=== PATIENT | male | born 1955 | race Caucasian/White ===

== ENCOUNTER 2018-06-10 20:00 | Emergency (ER) | payer MEDICARE ==
[~2018-06-10] VITALS: Ht 162.6 cm; Wt 48.1 kg
--- OUTSIDE RECORDS SUMMARY | 2018-06-10 20:03 | XMS REPORT ---
Author Author [facility] Address Unknown Phone Unavailable Care Team Providers Care Cleaner And Preparer Name Role Phone Unavailable Unavailable Problems This patient has no known problems. Allergies, Adverse Reactions, Alerts This patient has no known allergies or adverse reactions. Medications This patient has no known medications. Results Test Description Test Time Test Comments Text Results Atomic Results Result Comments CT ABDOMEN AND PELVIS W/WO 2018-01-22 10:37:34 CLINICAL INDICATION: C18.7 Malignant neoplasm of sigmoid colonMODALITY: [employer] CT (Iterative dose reduction techniques are utilized.)TECHNIQUE: Helical imaging of the abdomen and pelvis is performed. Oral contrast is administered. 81 mls optiray are administered IV. Imaging performed prior to and after administration of contrast.Computed Tomography Dose Index: 43 mGy. IMPRESSION:1. Circumferential bowel wall thickening in the distal colon, approximately 4 cm in length, consistent with primary malignancy. No evidence of bowel obstruction. Nodular soft tissue thickening within the sigmoid mesocolon likely represents metastasis.2. Hepatomegaly with multiple mass lesions consistent with extensive metastatic disease.3. Trace right pleural effusion. Trace ascites.FINDINGS:COMPARISON: Ultrasound 01/13/2018The lung bases are clear. A trace right pleural effusion is present.The liver is enlarged and demonstrates multiple, low attenuation, enhancing lesions in both lobes consistent with metastatic disease. The largest measures approximately 11.8 x 9.8 cm in the right liver on series 4, image 19. Hepatic veins, portal venous system and biliary tree are normal. The gallbladder is normal in appearance.Stomach and duodenum are unremarkable. The spleen is normal in size and contour. No pancreatic mass, pancreatic duct dilatation or peripancreatic edema is visible.Adrenal glands and kidneys are normal. There are no renal calculi, hydronephrosis or masses noted.Neither retrocrural nor retroperitoneal adenopathy is present. Vascular structures are within normal limits.Circumferential bowel wall thickening in the distal sigmoid colon on image 71 is consistent with primary malignancy. This measures approximately 4 cm in length. There is no evidence of bowel obstruction. A 2.6 x 1.3 cm nodular soft tissue thickening within the sigmoid mesocolon on series 4, image 66 likely represents metastasis. A trace amount of ascites is present in the pelvis.Normal appendix. Abdominal wall is intact.No lytic or blastic osseous lesions are observed.The urinary bladder is unremarkable.No inguinal lymphadenopathy.PQRS 436: [id number] (For official use only.)
--- OUTSIDE RECORDS SUMMARY | 2018-06-10 20:03 | XMS REPORT | Summary of Care ---
Author Author LORENA SAHA M.D. Organization Unknown Address [facility] Phone Unavailable Care Team Providers Care Customer Solutions Representative Name Role Phone LORENA SAHA M.D. Unavailable Unavailable MAIKEL SANCHEZ MD Unavailable Unavailable Functional Status Name Dates Details Functional status health issues are not documented Status: Name Dates Details Cognitive status health issues are not documented Status: Problems Name Dates Details History of intestinal infection (V12.79, Z87.19) Status: Active Medications Name Dates Details Medications not documented Allergies and Adverse Reactions Name Dates Details Allergy history not documented Status: Procedures Procedure Dates Details [QLH] CULTURE, STOOL (CAMPYLOBACTER, SALMONELLA/SHIGELLA) Date: 02-Nov-2017 [QLH] CBC (INCLUDES DIFF/PLT) Date: 02-Nov-2017 [H] Iron, TIBC \T\ Ferritin Date: 02-Nov-2017 [QLH] OVA AND PARASITES, STOOL CONC/PERM SMEAR, 3 SPEC Date: 02-Nov-2017 [QLH] OVA AND PARASITES, STOOL CONC/PERM SMEAR, 3 SPEC Date: 02-Nov-2017 [QLH] OVA AND PARASITES, STOOL CONC/PERM SMEAR, 3 SPEC Date: 02-Nov-2017 Immunization Name Dates Details Immunizations not documented Social History Name Dates Details Unknown if ever smoked Vital Signs Date Test Result Details [id number] BP Systolic 163 mm[Hg] Status: BP Diastolic 94 mm[Hg] Status: Height 65 in Status: Weight 130 lb Status: Body Mass Index Calculated 21.63 kg/m2 Status: Body Surface Area Calculated 1.65 m2 Status: Heart Rate 80 /min Status: Respiration Rate 18 /min Status: O2 SAT 100 % Status: Comments: Source: RA Results Date Description Value Details Results not documented Plan of Care Name Dates Details Planned Observations [QLH] CULTURE, STOOL (CAMPYLOBACTER, SALMONELLA/SHIGELLA) On: 08-Nov-2017 Intent Comments: To be Done: Recurring Schedule: 11/15/2017, 11/22/2017 ... [QLH] CBC (INCLUDES DIFF/PLT) On: 09-Nov-2017 Intent [H] Iron, TIBC \T\ Ferritin On: 09-Nov-2017 Intent [QLH] OVA AND PARASITES, STOOL CONC/PERM SMEAR, 3 SPEC On: 02-Nov-2017 Intent Comments: To be Done: Recurring Schedule: 11/09/2017, 11/16/2017 ... [QLH] OVA AND PARASITES, STOOL CONC/PERM SMEAR, 3 SPEC On: 09-Nov-2017 Intent Planned Goals not documented Interventions Provided Labs/Procedures/Imaging* [QLH] OVA AND PARASITES, STOOL CONC/PERM SMEAR, 3 SPEC; To Be Done: 02 Nov 2017 Discussion/Summary* Mr. Azevedo, is a 62 yo male patient, as PMHx HTN, hypothyroidism, low testosterone. History of abdominal cramps with change in bowel habits started around Apr-May 2017, colonoscopy was postponed due to concern of diverticulitis for which he received 7 days of Ciprofloxacin. In June 2017 he noticed like a parasites in stools look like flukes and has photos only one of which was slightly provocative. stools O&C showed few Endolimax Madiha cysts s/p Metronidazole treatment without clinical improvement. he has photos showed blood on paper and his last lab studies done in 10/04/17 showed Anemia Hbg 11 MCV 91 iron 18 WBC 57833 E 4% 500 N 74% L 12% CRP 24.2 LDH 341 ALP 174 TSH normal. Patient has lost weight but he said intentional ( 20 Lbs over the last two months). No recent travel, last one was to [facility] 4 years ago and one y ago to [place]. Cats at home. Currently, no fever, chills , malaise or night sweats. * Plan: * Will repeat CBCD, ferritin, Stools for parasites X 6 times today * If stools exams exclude parasites infections will refer him back to GI for colonoscopy to rule out underlying inflammatory lesions and given his age 62 yo regardless of anemia we discuss the importance of colonoscopy as screening. * Return in one month * . Instructions Name Dates Details Instructions not documented Encounters Appointment; LORENA SAHA M.D. Encounter Diagnosis: Problem not documented On: 02-Nov-2017 10:00
--- OUTSIDE RECORDS SUMMARY | 2018-06-10 20:03 | XMS REPORT | Clinical Summary ---
Author Author [facility] Address Unknown Phone Unavailable Care Team Providers Care Shot Core Drill Operator Name Role Phone Oscar Rush MD PCP Allergies No Known Allergies Medications End Date Status Medication Sig Dispensed Refills Start Date Active amlodipine-benazepril Take 1 0 (LOTREL) 10-20 mg per capsule by capsule mouth daily. Active thyroid, pork, (ARMOUR Take 60 mg by 0 THYROID) 60 mg tablet mouth daily. 06/24/2018 Active lidocaine (XYLOCAINE) 5 % Apply 35.44 g 2 ointment topically 2 8 (two) times a day for 30 days. Active Problems Not on file Encounters Care Team Description Date Type Specialty Daysi Lou MD COLONOSCOPY W/ STENT W/ FLUORO 05/25/2018 Surgery Gastroenterology Maxim Ibrahim MD 05/25/2018 Anesthesia Gastroenterology Event Daysi Lou MD 05/25/2018 Hospital Gastroenterology Encounter Daysi Lou MD Mass of colon 05/25/2018 Hospital Radiology Encounter Florinda Leigh MA 03/11/2018 Telephone Gastroenterology Florinda Leigh MA 02/23/2018 Telephone Gastroenterology Daniel Houston MD 02/18/2018 Anesthesia Gastroenterology Event Daysi Lou MD COLONOSCOPY W/ STENT W/ FLUORO 02/18/2018 Surgery Gastroenterology Daysi Lou MD Obstruction of colon 02/18/2018 Hospital Gastroenterology Encounter Nguyen Ordonez MD 02/16/2018 Lab Lab Florinda Leigh MA 01/27/2018 Telephone Gastroenterology Florinda Leigh MA 01/25/2018 Telephone Gastroenterology Brandon Ventura MD 01/24/2018 Telephone Gastroenterology Brandon Ventura MD Colon cancer metastasized to liver (Primary Dx) 01/20/2018 Office Visit Gastroenterology Florinda Leigh MA 01/18/2018 Telephone GastroenterBrandon Andres MD 01/14/2018 Lab Lab Brandon Ventura MD Malignant neoplasm of sigmoid colon (Primary Dx) 01/14/2018 Orders Only Brandon Ortega MD 01/14/2018 Documentation Gastroenterology Brandon Ventura MD 01/13/2018 Telephone Gastroenterology Florinda Leigh MA 01/13/2018 Telephone Gastroenterology Brandon Ventura MD Blood in stool (Primary Dx); Weight loss; Elevated alkaline phosphatase level 01/04/2018 Office Visit Gastroenterology Brandon Ventura MD 01/04/2018 Orders Only Gastroenterology after 06/09/2017 Social History Date Tobacco Use Types Packs/Day Years Used Never Smoker Smokeless Tobacco: Never Used Alcohol Use Drinks/Week oz/Week Comments Yes none currently Sex Assigned at Date Recorded Not on file Industry Job Start Date Occupation Not on file Not on file Not on file Travel End Travel History Travel Start No recent travel history available. Last Filed Vital Signs Time Taken Vital Sign Reading 05/25/2018 10:35 AM VP SOFTWARE ENGINEERING Blood Pressure 162/79 05/25/2018 10:35 AM VP SOFTWARE ENGINEERING Pulse 76 05/25/2018 10:35 AM VP SOFTWARE ENGINEERING Temperature 37.1 C (98.8 F) 05/25/2018 10:35 AM VP SOFTWARE ENGINEERING Respiratory Rate 16 05/25/2018 10:35 AM VP SOFTWARE ENGINEERING Oxygen Saturation 100% - Inhaled Oxygen - Concentration 01/20/2018 4:08 PM CDT Weight 53.5 kg (118 lb) 05/25/2018 8:54 AM VP SOFTWARE ENGINEERING Height 162.6 cm (5' 4") 01/20/2018 4:08 PM CDT Body Mass Index 20.25 Plan of Treatment Care Team Description Date Type Specialty Shay Salguero MD [address] [facility] [address] [place] [address] 06/24/2018 [facility] General Surgery Encounter Shay Salguero MD [address] [facility] [address] [place] [address] FLEX SIG, EXAM UNDER ANESTHESIA, REMOVAL OF FOREIGN BODY 06/24/2018 Surgery General Surgery Health Maintenance Due Date Last Done Comments COLON CANCER SCREENING 2003 SHINGLES VACCINES (1 of 2003 2) INFLUENZA VACCINE 01/19/2018 Implants Device Identifier Shelf Expiration Date Model / Serial / Lot Implanted Type Area Manufactur er 10/27/2019 [id number] / / [id number] Stent Clnc Wallflex Otw [id number] Surgical N/A: N/A BSC 30mm - [id number] Stents ENDOSCOPY Implanted: 02/18/2018 (Quantity not on file) Procedures Comments Procedure Name Priority Date/Time Associated Diagnosis COLONOSCOPY 05/25/2018 Mass of colon 10:00 AM VP SOFTWARE ENGINEERING FL < 1 HOUR Routine 02/18/2018 Obstruction of colon 2:55 PM CDT COLONOSCOPY 02/18/2018 Obstruction of colon 2:00 PM CDT Mass of colon SURGICAL PATHOLOGY Routine 01/14/2018 REQUEST 11:27 AM CDT SURGICAL PATHOLOGY Routine 01/14/2018 REQUEST 11:27 AM CDT SURGICAL PATHOLOGY Routine 01/14/2018 REQUEST 11:27 AM CDT SURGICAL PATHOLOGY Routine 01/14/2018 REQUEST 11:27 AM CDT SURGICAL PATHOLOGY Routine 01/14/2018 REQUEST 11:27 AM CDT CBC WITH PLATELET AND Routine 01/04/2018 DIFFERENTIAL 12:00 AM CDT HEPATIC FUNCTION PANEL Routine 01/04/2018 12:00 AM CDT after 06/09/2017 Results * FL < 1 Hour (02/18/2018 2:55 PM CDT) Narrative Performed At EXAMINATION:FL 1 HOUR HM RADIANT INDICATION:Pain IMPRESSION: Intraoperative fluoroscopy provided. No radiologist present for the procedure. Please see procedure note for detail. Fluoroscopic images: 3 Fluoroscopy dose: 117 mGy Procedure Note Hm Interface, Radiology Results Incoming - 02/18/2018 3:22 PM CDT EXAMINATION: FL 1 HOUR INDICATION: Pain IMPRESSION: Intraoperative fluoroscopy provided. No radiologist present for the procedure. Please see procedure note for detail. Fluoroscopic images: 3 Fluoroscopy dose: 117 mGy Performing Organization Address City/[facility]/Zipcode Phone Number [facility] [address] [place] [address] * Surgical pathology request (01/14/2018 11:27 AM CDT) Only the most recent of 5 results within the time period is included. [facility] DEPARTMENT OF PATHOLOGY AND GENOMIC MEDICINE Surgical pathology report See link below for PDF Lab [facility] DEPARTMENT OF Report PATHOLOGY AND GENOMIC MEDICINE Result status This is Supplemental Report [facility] DEPARTMENT OF for [id number] PATHOLOGY AND GENOMIC MEDICINE Performing Organization Address City/[facility]/Zipcode Phone Number [facility] DEPARTMENT OF [address] [place] [address] PATHOLOGY AND GENOMIC MEDICINE * CBC with platelet and differential (01/04/2018 12:00 AM CDT) WBC 15.1 (H) 3.8 - 10.8 Thousand/uL [facility] RBC 3.90 (L) 4.20 - 5.80 Million/uL [facility] HGB 9.6 (L) 13.2 - 17.1 g/dL [facility] HCT 31.0 (L) 38.5 - 50.0 % [facility] MCV 79.5 (L) 80.0 - 100.0 fL [facility] MCH 24.6 (L) 27.0 - 33.0 pg [facility] MCHC 31.0 (L) 32.0 - 36.0 g/dL [facility] RDW 14.4 11.0 - 15.0 % [facility] [employer] [place] Platelet count 610 (H) 140 - 400 Thousand/uL [facility] MPV 11.5 7.5 - 12.5 fL [facility] [employer] [place] Neutrophils, absolute 10,993 (H) 1,500 - 7,800 cells/uL [facility] [employer] [facility] Lymphocytes, absolute 1,797 850 - 3,900 cells/uL [facility] [employer] [facility] Monocytes, absolute 1,555 (H) 200 - 950 cells/uL [facility] [employer] [facility] Eosinophils, absolute 634 (H) 15 - 500 cells/uL [facility] Basophils, absolute 121 0 - 200 cells/uL [facility] [place] Neutrophils 72.8 % [employer] [facility] Lymphocytes 11.9 % [employer] [facility] Monocytes 10.3 % [employer] [facility] Eosinophils 4.2 % [facility] Basophils + RC 0.8 % [employer] [facility] Comment Comment: [facility] WE RECEIVED YOUR HANDWRITTEN [place] TEST ORDER AND PERFORMED A CBC (INCLUDES HEMOGRAM, PLATELET AND DIFFERENTIAL). IF THIS IS NOT WHAT YOU INTENDED TO ORDER, PLEASE CONTACT YOUR LOCAL NET LEAD ARCHITECT IMMEDIATELY SO THAT WE CAN ADJUST OUR BILLING APPROPRIATELY. YOU MAY ALSO INQUIRE ABOUT ALTERNATIVE OR ADDITIONAL TESTING. Narrative Performed At FASTING: UNKNOWN [facility] Resulting Agency Comment Performing Organization Information: Site ID: [facility] Name: [facility] Address: [address] [place] [id number] Director: Ivone Sow Performing Organization Address City/[facility] Phone Number [facility] [address] [place] [address] * Hepatic function panel (01/04/2018 12:00 AM CDT) Protein 6.4 6.1 - 8.1 g/dL [facility] [employer] [facility] Albumin, S 3.9 3.6 - 5.1 g/dL [facility] Globulin, total 2.5 1.9 - 3.7 g/dL (calc) [facility] Albumin/globulin ratio 1.6 1.0 - 2.5 (calc) [employer] [facility] Total bilirubin 0.3 0.2 - 1.2 mg/dL [facility] Bilirubin direct 0.1 < OR=0.2 mg/dL [facility] Bilirubin, indirect 0.2 0.2 - 1.2 mg/dL (calc) [employer] [facility] Alkaline phosphatase 280 (H) 40 - 115 U/L [facility] AST 33 10 - 35 U/L [employer] [facility] ALT 31 9 - 46 U/L [facility] Comment Comment: [employer] We received your handwritten [place] test order and performed the AMA defined Hepatic Function Panel. If this is not what you intended to order, please contact your local client resource specialist immediately so that we may adjust our billing appropriately. You may also inquire about alternative or additional testing. Narrative Performed At FASTING: UNKNOWN [facility] Resulting Agency Comment Performing Organization Information: Site ID: [facility] Name: [facility] Address: [address] [place] [id number] Director: Ivone Sow Performing Organization Address [facility]/Zipcode Phone Number [facility]IZ[facility] [facility] [address] [place] [address] after 06/09/2017 Insurance Payer Benefit Subscriber ID Type Phone Address Plan / Group COMMERCIAL MISC MISC xxxxxxxx Commercial [employer] MEDICARE MEDICARE xxxxxxxxxxx Medicare [place], [place] PART A AND B Advance Directives Patient has advance care planning documents on file. For more information, lana singleton contact: Enoc Calderón [address] [place] [address]
[2018-06-10] MEDS ORDERED: SODIUM CHLORIDE 0.9% 1000ML 1,000 ML IV SCH (21:45)
[2018-06-11 00:54] VITALS: BP 164/82
== END 2018-06-10 22:36 | disposition home or self-care (01) ==
LOC: FSED 20:00
DX: R10.30 Lower abdominal pain, unspecified (principal); D64.9 Anemia, unspecified; C19 Malignant neoplasm of rectosigmoid junction; C78.7 Secondary malignant neoplasm of liver and intrahepatic bile duct; I10 Essential (primary) hypertension
CPT/HCPCS: 80053; 81003; 85025; 99284

== ENCOUNTER 2018-06-16 14:39 | Emergency (ER) | payer MEDICARE ==
[~2018-06-16] VITALS: Ht 162.6 cm; Wt 48.1 kg
--- OUTSIDE RECORDS SUMMARY | 2018-06-16 14:42 | XMS REPORT | Clinical Summary ---
Author Author [facility] Address Unknown Phone Unavailable Care Team Providers Care Spray Cementer Name Role Phone Oscar Rush MD PCP [...] Ventura MD 01/04/2018 Orders Only Gastroenterology after 06/15/2017 Social History Date Tobacco Use Types Packs/Day [...] Taken Vital Sign Reading 05/25/2018 10:35 AM MATH TEACHER Blood Pressure 162/79 05/25/2018 10:35 AM MATH TEACHER Pulse 76 05/25/2018 10:35 AM MATH TEACHER Temperature 37.1 C (98.8 F) 05/25/2018 10:35 AM MATH TEACHER Respiratory Rate 16 05/25/2018 10:35 AM MATH TEACHER Oxygen Saturation 100% - Inhaled Oxygen - Concentration 01/20/2018 4:08 PM CDT Weight 53.5 kg (118 lb) 05/25/2018 8:54 AM MATH TEACHER Height 162.6 cm (5' 4") 01/20/2018 4:08 PM CDT Body Mass Index 20.25 Plan of Treatment Care Team Description Date Type Specialty Shay Salguero MD [address] [facility] [address] [place] [address] 06/24/2018 [facility] General Surgery Encounter Shay Salguero MD [address] [facility] [address] [place] [address] FLEX SIG, EXAM UNDER ANESTHESIA, REMOVAL OF FOREIGN BODY 06/24/2018 Surgery General Surgery Health Maintenance Due Date Last Done Comments COLON CANCER SCREENING 2003 SHINGLES VACCINES (1 of 2003 2) INFLUENZA VACCINE 01/19/2018 PNEUMOCOCCAL 2018 POLYSACCHARIDE VACCINE AGE 65 AND OVER PNEUMOCOCCAL-13 2018 Implants Device Identifier Shelf Expiration Date Model / Serial / Lot Implanted Type Area Manufactur er 10/27/2019 [id number] / / [id number] Stent Clnc Wallflex Otw [id number] Surgical N/A: N/A BSC 30mm - [id number] Stents ENDOSCOPY Implanted: 02/18/2018 (Quantity not on file) Procedures Comments Procedure Name Priority Date/Time Associated Diagnosis COLONOSCOPY 05/25/2018 Mass of colon 10:00 AM MATH TEACHER FL < 1 HOUR Routine 02/18/2018 Obstruction [...] PANEL Routine 01/04/2018 12:00 AM CDT after 06/15/2017 Results * FL < 1 Hour (02/18/2018 [...] Fluoroscopy dose: 117 mGy Performing Organization Address City/[facility]/Zipcode Phone Number [facility] [address] [place] [address] * Surgical pathology request (01/14/2018 11:27 AM CDT) Only the most recent of 5 results within the time period is included. [facility] DEPARTMENT OF PATHOLOGY AND GENOMIC MEDICINE Surgical pathology report See link below for PDF Lab [facility] DEPARTMENT OF Report PATHOLOGY AND GENOMIC MEDICINE Result status This is Supplemental Report [facility] DEPARTMENT OF for [id number] PATHOLOGY AND GENOMIC MEDICINE Performing Organization Address City/[facility]/Zipcode Phone Number [facility] [address] [place] [address] PATHOLOGY AND GENOMIC MEDICINE * CBC with platelet and differential (01/04/2018 12:00 AM CDT) WBC 15.1 (H) 3.8 - 10.8 Thousand/uL [facility] RBC 3.90 (L) 4.20 - 5.80 Million/uL [facility] HGB 9.6 (L) 13.2 - 17.1 g/dL [facility] HCT 31.0 (L) 38.5 - 50.0 % [facility] MCV 79.5 (L) 80.0 - 100.0 fL [facility] MCH 24.6 (L) 27.0 - 33.0 pg [facility] MCHC 31.0 (L) 32.0 - 36.0 g/dL [facility] RDW 14.4 11.0 - 15.0 % [facility] Platelet count 610 (H) 140 - 400 Thousand/uL [facility] MPV 11.5 7.5 - 12.5 fL [facility] Neutrophils, absolute 10,993 (H) 1,500 - 7,800 cells/uL [facility] Lymphocytes, absolute 1,797 850 - 3,900 cells/uL [facility] Monocytes, absolute 1,555 (H) 200 - 950 cells/uL [facility] Eosinophils, absolute 634 (H) 15 - 500 cells/uL [facility] Basophils, absolute 121 0 - 200 cells/uL [facility] Neutrophils 72.8 % [facility] Lymphocytes 11.9 % [facility] Monocytes 10.3 % [facility] Eosinophils 4.2 % [facility] [place] Basophils + RC 0.8 % [facility] [place] Comment Comment: [employer] WE RECEIVED YOUR HANDWRITTEN [place] TEST ORDER AND PERFORMED A CBC (INCLUDES HEMOGRAM, PLATELET AND DIFFERENTIAL). IF THIS IS NOT WHAT YOU INTENDED TO ORDER, PLEASE CONTACT YOUR LOCAL ENTERPRISE RESOURCE PLANNING CONSULTANT IMMEDIATELY SO THAT WE CAN ADJUST OUR BILLING APPROPRIATELY. YOU MAY ALSO INQUIRE ABOUT ALTERNATIVE OR ADDITIONAL TESTING. Narrative Performed At FASTING: UNKNOWN [facility] Resulting Agency Comment Performing Organization Information: Site ID: [facility] Name: [facility] Address: [address] [place] [id number] Director: Ivone Sow Performing Organization Address City/[facility] Cent[facility]ode Phone Number [employer] [address] [address] * Hepatic function panel (01/04/2018 12:00 AM CDT) Protein 6.4 6.1 - 8.1 g/dL [employer] [place] Albumin, S 3.9 3.6 - 5.1 g/dL [employer] [place] Globulin, total 2.5 1.9 - 3.7 g/dL (calc) [email or web address] [facility] Albumin/globulin ratio 1.6 1.0 - 2.5 (calc) [employer] [place] Total bilirubin 0.3 0.2 - 1.2 mg/dL [employer] [place] Bilirubin direct 0.1 < OR=0.2 mg/dL [employer] [place] Bilirubin, indirect 0.2 0.2 - 1.2 mg/dL (calc) [employer] [place] Alkaline phosphatase 280 (H) 40 - 115 U/L [employer] [place] AST 33 10 - 35 U/L [employer] [place] ALT 31 9 - 46 U/L [employer] [place] Comment Comment: [employer] We received your handwritten [place] test order and performed the AMA defined Hepatic Function Panel. If this is not what you intended to order, please contact your local client support associate immediately so that we may adjust our billing appropriately. You may also inquire about alternative or additional testing. Narrative Performed At FASTING: [facility]KNOWN [facility] Resulting Agency Comment Performing Organization Information: Site ID: [facility] Name: [facility] Address: [address] [place] [id number] Director: Ivone Sow Performing Organization Address City/[facility]/Zipcode Phone Number [employer] [address] [phone] after 06/15/2017 Insurance Payer Benefit Subscriber ID Type Phone Address Plan / Group COMMERCIAL MISC MISC xxxxxxxx Commercial [employer] BCBS BCBS xxxxxxxxxxxx PPO CHOICE PPO/FEDERA L EMPL PPO MEDICARE MEDICARE xxxxxxxxxxx Medicare [place], [place] PART A AND B Advance Directives Patient has advance care planning documents on file. For more information, lana singleton contact: Enoc Calderón [address] [place] [address]
--- OUTSIDE RECORDS SUMMARY | 2018-06-16 14:44 | XMS REPORT | Clinical Summary ---
Author Author [employer] [facility] [employer] [facility] Address Unknown Phone Unavailable Care Team Providers Care Floor Grinder Name Role Phone Oscar Rush MD PCP [...] Mass of colon 05/25/2018 Hospital Radiology Encounter Flornida Leigh MA 03/11/2018 Telephone Gastroenterology Florinda Leigh [...] Taken Vital Sign Reading 05/25/2018 10:35 AM SECURITY LEAD Blood Pressure 162/79 05/25/2018 10:35 AM SECURITY LEAD Pulse 76 05/25/2018 10:35 AM SECURITY LEAD Temperature 37.1 C (98.8 F) 05/25/2018 10:35 AM SECURITY LEAD Respiratory Rate 16 05/25/2018 10:35 AM SECURITY LEAD Oxygen Saturation 100% - Inhaled Oxygen - Concentration 01/20/2018 4:08 PM CDT Weight 53.5 kg (118 lb) 05/25/2018 8:54 AM SECURITY LEAD Height 162.6 cm (5' 4") 01/20/2018 4:08 PM CDT Body Mass Index 20.25 Plan of Treatment Care Team Description Date Type Specialty Shay Salguero MD [address] [facility] [address] [place] [address] 06/24/2018 [facility] General Surgery Encounter Shay Salguero MD [address] [facility] [address] [place] [address] FLEX SIG, EXAM UNDER ANESTHESIA, REMOVAL OF FOREIGN BODY 06/24/2018 Surgery General Surgery Health Maintenance Due Date Last Done Comments COLON CANCER SCREENING 2003 SHINGLES VACCINES (1 of 2003 2) INFLUENZA VACCINE 01/19/2018 PNEUMOCOCCAL 2018 POLYSACCHARIDE VACCINE AGE 65 AND OVER PNEUMOCOCCAL-13 2018 Implants Device Identifier Shelf Expiration Date Model / Serial / Lot Implanted Type Area Manufactur er 10/27/2019 [id number] / / [id number] Stent Clnc Wallflex Otw [id number] Surgical N/A: N/A BSC 30mm - [id number] Stents ENDOSCOPY Implanted: 02/18/2018 (Quantity not on file) Procedures Comments Procedure Name Priority Date/Time Associated Diagnosis COLONOSCOPY 05/25/2018 Mass of colon 10:00 AM SECURITY LEAD FL < 1 HOUR Routine 02/18/2018 Obstruction [...] Fluoroscopy dose: 117 mGy Performing Organization Address City/[facility]/Zipcode Phone Number [facility] [address] [place] [address] * Surgical pathology request (01/14/2018 11:27 AM CDT) Only the most recent of 5 results within the time period is included. [facility] DEPARTMENT OF PATHOLOGY AND GENOMIC MEDICINE Surgical pathology report See link below for PDF Lab [facility] DEPARTMENT OF Report PATHOLOGY AND GENOMIC MEDICINE Result status This is Supplemental Report [facility] DEPARTMENT OF for [id number] PATHOLOGY AND GENOMIC MEDICINE Performing Organization Address City/[facility]/Zipcode Phone Number [facility] [address] [place] [address] PATHOLOGY AND GENOMIC MEDICINE * CBC with platelet and differential (01/04/2018 12:00 AM CDT) WBC 15.1 (H) 3.8 - 10.8 Thousand/uL [facility] RBC 3.90 (L) 4.20 - 5.80 Million/uL [facility] HGB 9.6 (L) 13.2 - 17.1 g/dL [facility] HCT 31.0 (L) 38.5 - 50.0 % [facility] MCV 79.5 (L) 80.0 - 100.0 fL [facility] MCH 24.6 (L) 27.0 - 33.0 pg [facility] MCHC 31.0 (L) 32.0 - 36.0 g/dL [facility] RDW 14.4 11.0 - 15.0 % [facility] Platelet count 610 (H) 140 - 400 Thousand/uL [facility] MPV 11.5 7.5 - 12.5 fL [facility] Neutrophils, absolute 10,993 (H) 1,500 - 7,800 cells/uL [facility] Lymphocytes, absolute 1,797 850 - 3,900 cells/uL [facility] Monocytes, absolute 1,555 (H) 200 - 950 cells/uL [facility] Eosinophils, absolute 634 (H) 15 - 500 cells/uL [facility] Basophils, absolute 121 0 - 200 cells/uL [facility] Neutrophils 72.8 % [facility] Lymphocytes 11.9 % [facility] Monocytes 10.3 % [facility] Eosinophils 4.2 % [facility] [place] Basophils + RC 0.8 % [facility] [place] Comment Comment: [facility] WE RECEIVED YOUR HANDWRITTEN [place] TEST ORDER AND PERFORMED A CBC (INCLUDES HEMOGRAM, PLATELET AND DIFFERENTIAL). IF THIS IS NOT WHAT YOU INTENDED TO ORDER, PLEASE CONTACT YOUR LOCAL INTENSIVE CARE MEDICINE SPECIALIST IMMEDIATELY SO THAT WE CAN ADJUST OUR BILLING APPROPRIATELY. YOU MAY ALSO INQUIRE ABOUT ALTERNATIVE OR ADDITIONAL TESTING. Narrative Performed At FASTING: UNKNOWN [facility] Resulting Agency Comment Performing Organization Information: Site ID: [facility] Name: [facility] Address: [address] [place] [id number] Director: Ivone Sow Performing Organization Address City/[facility] Clinic[facility] Phone Number [facility] [address] [address] * Hepatic function panel (01/04/2018 12:00 AM CDT) Protein 6.4 6.1 - 8.1 g/dL [facility] [place] Albumin, S 3.9 3.6 - 5.1 g/dL [facility] [place] Globulin, total 2.5 1.9 - 3.7 g/dL (calc) [facility] Albumin/globulin ratio 1.6 1.0 - 2.5 (calc) [facility] [place] Total bilirubin 0.3 0.2 - 1.2 mg/dL [facility] [place] Bilirubin direct 0.1 < OR=0.2 mg/dL [facility] [place] Bilirubin, indirect 0.2 0.2 - 1.2 mg/dL (calc) [facility] [place] Alkaline phosphatase 280 (H) 40 - 115 U/L [facility] [place] AST 33 10 - 35 U/L [facility] [place] ALT 31 9 - 46 U/L [facility] [place] Comment Comment: [facility] We received your handwritten [place] test order and performed the AMA defined Hepatic Function Panel. If this is not what you intended to order, please contact your local client experience manager immediately so that we may adjust our billing appropriately. You may also inquire about alternative or additional testing. Narrative Performed At FASTING: UNKNOWN [facility] Resulting Agency Comment Performing Organization Information: Site ID: [facility] Name: [facility] Address: [address] [place] [id number] Director: Ivone Sow Performing Organization Address City/[facility]/Zipcode Phone Number [facility] [address] [phone] after 06/15/2017 Insurance Payer Benefit Subscriber ID Type Phone Address Plan / Group COMMERCIAL MISC MISC xxxxxxxx Commercial [employer] BCBS BCBS xxxxxxxxxxxx PPO CHOICE PPO/FEDERA L EMPL PPO MEDICARE MEDICARE xxxxxxxxxxx Medicare [place], [place] PART A AND B Advance Directives Patient has advance care planning documents on file. For more information, lana singleton contact: Enoc Calderón [address] [place] [address]
--- NOTE | 2018-06-16 15:56 | Diagnostic Imaging Report ---
ADDENDUM #1 Addendum: Dose reduction techniques used: Automated exposure control, adjustment of the mAs and/or kVp according to patient size, standardized low-dose protocol, and/or iterative reconstruction technique. Signed by: Dr. Sesar Malhotra DO on 06/27/2018 10:01 AM ORIGINAL REPORT EXAMINATION: CT of the abdomen and pelvis without contrast. TECHNIQUE: Spiral CT images of the abdomen and pelvis were performed from the lung bases to the lesser trochanters. No intravenous contrast was given per renal stone protocol. Coronal and sagittal reformatted images were obtained. COMPARISON: None CLINICAL HISTORY: History of colon cancer with hepatic metastasis. Now with right-sided flank pain. DISCUSSION: Study is limited without IV contrast. ABDOMEN/PELVIS: LOWER THORAX: Unremarkable. HEPATOBILIARY: Liver is diffusely enlarged with multiple hypodense metastasis. SPLEEN: No splenomegaly. PANCREAS: No focal masses or ductal dilatation. ADRENALS: No adrenal nodules. KIDNEYS/URETERS: No calcified renal stones or hydronephrosis. Right kidney is deviated inferiorly and anteriorly by the marked hepatic enlargement. PELVIC ORGANS/BLADDER: The bladder is normal. Multiple pelvic calcifications compatible with phleboliths. PERITONEUM/RETROPERITONEUM: Pelvic ascites. LYMPH NODES: No intra-abdominal,retroperitoneal, pelvic or inguinal lymphadenopathy. VESSELS: Diffuse vascular calcification. GI TRACT: No distention or wall thickening. BONES AND SOFT TISSUES: No bony destructive lesions. No soft tissue abnormalities. IMPRESSION: 1. Massive liver enlargement with multiple hypodense metastasis. 2. No evidence of hydronephrosis, calcified renal or ureteral stones. Signed by: Dr. Sesar Malhotra DO on 06/16/2018 3:53 PM
--- NOTE | 2018-06-16 17:17 | Diagnostic Imaging Report ---
EXAMINATION: PA and lateral views of the chest. COMPARISON: CT abdomen and pelvis without contrast same date CLINICAL HISTORY: Cough DISCUSSION: Lines/tubes: None. Lungs: The lungs are well inflated and grossly clear. There is no evidence of pneumonia or pulmonary edema. Pleura: There is no pleural effusion or pneumothorax. Elevation of the right hemidiaphragm. Heart and mediastinum: Cardiomediastinal silhouette is unremarkable. Pulmonary vasculature is normal. Bones and soft tissues: No acute bony abnormalities. Degenerative changes in the thoracic spine IMPRESSION: Elevated right hemidiaphragm. No acute cardiopulmonary abnormalities. Signed by: Dr. David Norton M.D. on 06/16/2018 5:13 PM
--- NOTE | 2018-06-16 17:18 | NUR ---
PT REPORTS FEVER TO MD OF 101 TODAY AND YESTERDAY.
[2018-06-16] MEDS ORDERED: ONDANSETRON HCL 4 MG ORAL DISINTEGRATING TAB PO ONE (18:15)
--- NOTE | 2018-06-16 19:55 | Diagnostic Imaging Report ---
EXAM: CT Abdomen and Pelvis WITH contrast INDICATION: Symptoms of kidney stones. Severe right flank pain with fever. Recent surgical removal of a colonic stent in the sigmoid colon. COMPARISON: CT abdomen and pelvis without contrast 06/16/2018 at 1523 TECHNIQUE: Abdomen and pelvis were scanned utilizing a multidetector helical scanner from the lung base to the pubic symphysis after administration of IV contrast. Coronal and sagittal reformations were obtained. Routine protocol was performed. Scan was performed when during portal venous phase. IV CONTRAST: 100 mL of Isovue 370 ORAL CONTRAST: Gastrografin COMPLICATIONS: None RADIATION DOSE: Total DLP: 377.09 mGy*cm Estimated effective dose: (DLP x 0.015 x size factor) mSv CTDIvol has been reviewed. It is below the limits set by the Radiation Protocol Committee (RPC). FINDINGS: LINES and TUBES: None. LOWER THORAX: Severe trivessel coronary artery calcifications. Mild distal esophageal wall thickening with surrounding varices. Tiny right pleural effusion. HEPATOBILIARY: Liver is enlarged and diffusely infiltrated by metastases. No biliary ductal dilation. GALLBLADDER: No radio-opaque stones or sludge. No wall thickening. SPLEEN: No splenomegaly. PANCREAS: No focal masses or ductal dilatation. ADRENALS: Left adrenal gland is normal. Right adrenal gland is not visualized. KIDNEYS/URETERS: Kidneys enhance symmetrically. Right kidney is displaced inferiorly and anteriorly by the hepatic enlargement. No hydronephrosis. No cystic or solid mass lesions. No stones. GI TRACT: Diffuse rectal wall thickening. Sigmoid colon is decompressed and demonstrates mild wall thickening. More proximal sigmoid colon has significant stool without definite obstruction. No abnormal distention, wall thickening, or evidence of bowel obstruction. Appendix is not visualized. PELVIC ORGANS/BLADDER: Unremarkable. LYMPH NODES: No lymphadenopathy. VESSELS: There is moderate atherosclerotic disease in the aorta and major arterial branches. IVC is compressed by the liver. Main portal vein is patent. However, right portal vein distally is obscured and likely compressed by tumor. There is abnormal course of the left portal vein, which remains patent. PERITONEUM / RETROPERITONEUM: Free fluid in the pelvis. BONES: Unremarkable. SOFT TISSUES: Enlarging small bowel containing right inguinal hernia compared to same date CT. There is mild proximal dilatation of the small bowel loop measuring 2.2 cm. IMPRESSION: 1. Massive liver enlargement with diffuse metastatic disease. 2. Enlarging right inguinal hernia containing small bowel loop with mild upstream obstruction. This has enlarged compared to same date CT. 3. Distal sigmoid and rectal wall thickening, consistent with colonic neoplasm. No upstream obstruction. Significant stool throughout the remaining colon. 4. Free fluid in the deep pelvis. Signed by: Dr. Du Lan M.D. on 06/16/2018 7:51 PM
== END 2018-06-16 19:30 | disposition home or self-care (01) ==
LOC: FSED 14:39
DX: R10.31 Right lower quadrant pain (principal); R10.11 Right upper quadrant pain; R11.2 Nausea with vomiting, unspecified; Z85.038 Personal history of other malignant neoplasm of large intestine
CPT/HCPCS: 71046; 74176; 74177; 80053; 81003; 85025; 99284; Q0162

== ENCOUNTER 2018-07-22 09:59 | Observation (INO) | payer MEDICARE, OTHER ==
[~2018-07-22] VITALS: Ht 162.6 cm; Wt 49.4 kg
--- OUTSIDE RECORDS SUMMARY | 2018-07-22 10:01 | XMS REPORT | Clinical Summary ---
Author Author [employer] [facility] Organization [employer] [facility] Address Unknown Phone Unavailable Care Team Providers Care Truck Technician Name Role Phone Oscar Rush MD PCP Allergies No Known Allergies Medications End Date Status Medication Sig Dispensed Refills Start Date Active amlodipine-benazepril Take 1 0 (LOTREL) 10-20 mg per capsule by capsule mouth daily. Active thyroid, pork, (ARMOUR Take 60 mg by 0 THYROID) 60 mg tablet mouth daily. 06/24/2018 lidocaine (XYLOCAINE) 5 % Apply 35.44 g [...] Visit Gastroenterology Florinda Leigh MA 01/18/2018 Telephone Gastroenterology Brandon Ventura MD 01/14/2018 Lab Lab Brandon Ventura MD Malignant neoplasm of sigmoid colon (Primary Dx) 01/14/2018 Orders Only GastroenterBrandon Andres MD 01/14/2018 Documentation Gastroenterology Brandon Ventura MD 01/13/2018 Telephone Gastroenterology Florinda Leigh MA 01/13/2018 Telephone Gastroenterology Brandon Ventura MD Blood in stool (Primary Dx); Weight loss; Elevated alkaline phosphatase level 01/04/2018 Office Visit Gastroenterology Brandon Ventura MD 01/04/2018 Orders Only Gastroenterology after 07/21/2017 Social History Date Tobacco Use Types Packs/Day [...] Taken Vital Sign Reading 05/25/2018 10:35 AM AERONAUTICAL ENGINEERING TEACHER Blood Pressure 162/79 05/25/2018 10:35 AM AERONAUTICAL ENGINEERING TEACHER Pulse 76 05/25/2018 10:35 AM AERONAUTICAL ENGINEERING TEACHER Temperature 37.1 C (98.8 F) 05/25/2018 10:35 AM AERONAUTICAL ENGINEERING TEACHER Respiratory Rate 16 05/25/2018 10:35 AM AERONAUTICAL ENGINEERING TEACHER Oxygen Saturation 100% - Inhaled Oxygen - Concentration 01/20/2018 4:08 PM CDT Weight 53.5 kg (118 lb) 05/25/2018 8:54 AM AERONAUTICAL ENGINEERING TEACHER Height 162.6 cm (5' 4") 01/20/2018 4:08 PM CDT Body Mass Index 20.25 Plan of Treatment Health Maintenance Due Date Last Done Comments COLON CANCER SCREENING 2003 SHINGLES VACCINES (1 of 2003 2) INFLUENZA VACCINE 01/19/2018 PNEUMOCOCCAL 2018 POLYSACCHARIDE VACCINE AGE 65 AND OVER PNEUMOCOCCAL-13 2018 Implants Device Identifier Shelf Expiration Date Model / Serial / Lot Implanted Type Area Manufactur er 10/27/2019 [id number] / / [id number] Stent Clnc Wallflex Otw [id number] Surgical N/A: N/A [facility] 30mm - [id number] Stents ENDOSCOPY Implanted: 02/18/2018 (Quantity not on file) Procedures Comments Procedure Name Priority Date/Time Associated Diagnosis COLONOSCOPY 05/25/2018 Mass of colon 10:00 AM AERONAUTICAL ENGINEERING TEACHER [place] < 1 HOUR Routine 02/18/2018 [...] PANEL Routine 01/04/2018 12:00 AM CDT after 07/21/2017 Results * FL < 1 Hour (02/18/2018 2:55 PM CDT) Narrative Performed At EXAMINATION:[place] 1 HOUR [facility] INDICATION:Pain IMPRESSION: Intraoperative fluoroscopy provided. No radiologist present for the procedure. Please see procedure note for detail. Fluoroscopic images: 3 Fluoroscopy dose: [address] [facility], Radiology Results Incoming - 02/18/2018 3:22 PM CDT EXAMINATION: FL 1 HOUR INDICATION: Pain IMPRESSION: Intraoperative fluoroscopy provided. No radiologist present for the procedure. Please see procedure note for detail. Fluoroscopic images: 3 Fluoroscopy dose: 117 mGy Performing Organization Address City/State/Zipcode Phone Number [facility] [address] [place] [address] * Surgical pathology request (01/14/2018 11:27 AM CDT) Only the most recent of 5 results within the time period is included. [facility] DEPARTMENT OF PATHOLOGY AND GENOMIC MEDICINE Surgical pathology report See link below for PDF Lab [facility] DEPARTMENT OF Report PATHOLOGY AND GENOMIC MEDICINE Result status This is Supplemental Report [facility] DEPARTMENT OF for [id number] PATHOLOGY AND GENOMIC MEDICINE Performing Organization Address City/State/Zipcode Phone Number [facility] DEPARTMENT OF [address] [place] [address] PATHOLOGY AND GENOMIC MEDICINE * CBC with platelet and differential (01/04/2018 12:00 AM CDT) WBC 15.1 (H) 3.8 - 10.8 Thousand/uL [facility] [place] RBC 3.90 (L) 4.20 - 5.80 Million/uL [facility] [place] HGB 9.6 (L) 13.2 - 17.1 g/dL [facility] [place] HCT 31.0 (L) 38.5 - 50.0 % [facility] [place] MCV 79.5 (L) 80.0 - 100.0 fL [facility] [place] MCH 24.6 (L) 27.0 - 33.0 pg [facility] [place] MCHC 31.0 (L) 32.0 - 36.0 g/dL [facility] [place] RDW 14.4 11.0 - 15.0 % [facility] [place] Platelet count 610 (H) 140 - 400 Thousand/uL [facility] [place] MPV 11.5 7.5 - 12.5 fL [facility] [place] Neutrophils, absolute 10,993 (H) 1,500 - 7,800 cells/uL [facility] [place] Lymphocytes, absolute 1,797 850 - 3,900 cells/uL [facility] [place] Monocytes, absolute 1,555 (H) 200 - 950 cells/uL [facility] [place] Eosinophils, absolute 634 (H) 15 - 500 cells/uL [facility] [place] Basophils, absolute 121 0 - 200 cells/uL [facility] [place] Neutrophils 72.8 % [facility] [place] Lymphocytes 11.9 % [facility] [place] Monocytes 10.3 % [facility] [place] Eosinophils 4.2 % [facility] [place] Basophils + RC 0.8 % [facility] [place] Comment Comment: [facility] WE RECEIVED YOUR HANDWRITTEN [place] TEST ORDER AND PERFORMED A CBC (INCLUDES HEMOGRAM, PLATELET AND DIFFERENTIAL). IF THIS IS NOT WHAT YOU INTENDED TO ORDER, PLEASE CONTACT YOUR LOCAL CCTV TECHNICIAN IMMEDIATELY SO THAT WE CAN ADJUST OUR BILLING APPROPRIATELY. YOU MAY ALSO INQUIRE ABOUT ALTERNATIVE OR ADDITIONAL TESTING. Narrative Performed At FASTING: UNKNOWN [facility] Resulting Agency Comment Performing Organization Information: Site ID: [id number] Name: [facility] Address: [address] [place] [address] Director: Ivone Sow Performing Organization Address [facility] Phone Number [facility] [place] [address] [place] [address] * Hepatic function panel (01/04/2018 12:00 AM CDT) Protein 6.4 6.1 - 8.1 g/dL [facility] [place] Albumin, S 3.9 3.6 - 5.1 g/dL [facility] [place] Globulin, total 2.5 1.9 - 3.7 g/dL (calc) [facility] [place] Albumin/globulin ratio 1.6 1.0 - 2.5 (calc) [facility] [place] Total bilirubin 0.3 0.2 - 1.2 mg/dL [facility] [place] Bilirubin direct 0.1 < OR=0.2 mg/dL [facility] [place] Bilirubin, indirect 0.2 0.2 - 1.2 mg/dL (calc) [facility] [place] Alkaline phosphatase 280 (H) 40 - 115 U/L [facility] [place] AST 33 10 - 35 U/L [facility] [place] ALT 31 9 - 46 U/L [facility] [place] Comment Comment: [facility] We received your handwritten [place] test order and performed the AMA defined Hepatic Function Panel. If this is not what you intended to order, please contact your local retail client solutions consultant immediately so that we may adjust our billing appropriately. You may also inquire about alternative or additional testing. Narrative Performed At FASTING: UNKNOWN [facility] Resulting Agency Comment Performing Organization Information: Site ID: [id number] Name: [facility] Lab Address: [address] [place] [address] Director: Ivone Sow Performing Organization Address City/[facility] Cent[facility]ode Phone Number [facility] [place] [address] [place], [place] [phone] after 07/21/2017 Insurance Payer Benefit Subscriber ID Type Phone Address Plan / Group COMMERCIAL MISC MISC xxxxxxxx Commercial [employer] BCBS BCBS xxxxxxxxxxxx PPO CHOICE PPO/FEDERA L EMPL PPO MEDICARE MEDICARE xxxxxxxxxxx Medicare [place], [place] PART [place] ) [place] [address] Advance Directives Patient has advance care planning documents on file. For more information, lana singleton contact: Enoc Calderón [address] [place] [address]
--- OUTSIDE RECORDS SUMMARY | 2018-07-22 10:01 | XMS REPORT | Continuity of Care Document ---
Author Author [facility] Interface Address Unknown Phone Unavailable Problems Problem Status Onset Date Classification Date Reported Comments Source Medications Medication Details Route Status Patient Instructions Ordering Provider Order Date Source Allergies, Adverse Reactions, Alerts Substance Category Reaction Severity Reaction type Status Date Reported Comments Source Immunizations Immunization Date Given Site Status Last Updated Comments Source Results Order Name Results Value Reference Range Date Interpretation Comments Source Vital Signs Vital Sign Value Date Comments Source Encounters Location Location Details Encounter Type Encounter Number Reason For Visit Attending Provider ADM Date DC Date Status Source Departed Emergency Room [id number] YEIMI SHIN MD 06/10/2018 06/10/2018 [facility] Departed Emergency Room [id number] RUSS ESQUIVEL MD 06/16/2018 06/16/2018 [facility] Procedures Procedure Code Date Perfomer Comments Source
[2018-07-22] MEDS ORDERED: ONDANSETRON HCL INJ 2MG/ML 2ML 2 MG/ML VIAL IV STA (10:26)
[2018-07-22] MEDS ORDERED: MORPHINE SULFATE 5 MG/ML VIAL IV ONE (10:30)
[2018-07-22] MEDS ORDERED: SODIUM CHLORIDE 0.9% 1000ML 1,000 ML IV SCH (10:30)
--- NOTE | 2018-07-22 11:44 | Diagnostic Imaging Report ---
EXAMINATION: CT of the abdomen and pelvis with contrast. TECHNIQUE: Helical CT images of the abdomen and pelvis were performed from the lung bases to the lesser trochanters after the intravenous administration of 150 cc of Isovue 300 and the oral administration of none. Coronal and sagittal reformatted images were obtained. COMPARISON: June 16, 2018 CLINICAL HISTORY:Abdominal pain DISCUSSION: ABDOMEN/PELVIS: LOWER THORAX:Bilateral pleural effusions. HEPATOBILIARY: Hepatic enlargement with bilobed diffuse hepatic metastasis. No intra-or extrahepatic biliary ductal dilation. The gallbladder is normal. SPLEEN: No splenomegaly. PANCREAS: No focal masses or ductal dilatation. ADRENALS: No adrenal nodules. KIDNEYS/URETERS: No hydronephrosis, stones, or solid mass lesions. PELVIC ORGANS/BLADDER: The bladder is normal. PERITONEUM/RETROPERITONEUM: Abdominal ascites increased. LYMPH NODES: No intra-abdominal, retroperitoneal, pelvic or inguinal lymphadenopathy. VESSELS: Vascular calcifications GI TRACT: Thickening of the sigmoid colon, relatively stable on axial image 79. No obstruction. BONES AND SOFT TISSUE: No bony destructive lesions. No soft tissue abnormalities. IMPRESSION: Sigmoid colonic malignancy with extensive bilobed hepatic metastasis, appear stable. Mildly increased pleural effusions and ascites. Signed by: Dr. Jairon Sands M.D. on 07/22/2018 11:41 AM
[2018-07-22] MEDS ORDERED: LEVOFLOXACIN 500MG/D5W 100ML 100 ML IV SCH (12:15)
[2018-07-22] MEDS ORDERED: SODIUM CHLORIDE 0.9% 250ML 250 ML IV ONE (12:15)
[2018-07-22] MEDS ORDERED: MORPHINE SULFATE 2 MG/ML SYR 1ML IV PRN (12:15)
--- OUTSIDE RECORDS SUMMARY | 2018-07-22 12:20 | XMS REPORT | Clinical Summary ---
Author Author [facility] Organization [facility] Address Unknown Phone Unavailable Care Team Providers Care Improvement Spec Name Role Phone Oscar Rush MD PCP [...] of colon 05/25/2018 Hospital Radiology Encounter Florinda Legih MA 03/11/2018 Telephone Gastroenterology Florinda Leigh MA [...] Taken Vital Sign Reading 05/25/2018 10:35 AM PRODUCTION PLANNING SUPERVISOR Blood Pressure 162/79 05/25/2018 10:35 AM PRODUCTION PLANNING SUPERVISOR Pulse 76 05/25/2018 10:35 AM PRODUCTION PLANNING SUPERVISOR Temperature 37.1 C (98.8 F) 05/25/2018 10:35 AM PRODUCTION PLANNING SUPERVISOR Respiratory Rate 16 05/25/2018 10:35 AM PRODUCTION PLANNING SUPERVISOR Oxygen Saturation 100% - Inhaled Oxygen - Concentration 01/20/2018 4:08 PM CDT Weight 53.5 kg (118 lb) 05/25/2018 8:54 AM PRODUCTION PLANNING SUPERVISOR Height 162.6 cm (5' 4") 01/20/2018 4:08 PM CDT Body Mass Index 20.25 Plan of Treatment Health Maintenance Due Date Last Done Comments COLON CANCER SCREENING 2003 SHINGLES VACCINES (1 of 2003 2) INFLUENZA VACCINE 01/19/2018 PNEUMOCOCCAL 2018 POLYSACCHARIDE VACCINE AGE 65 AND OVER PNEUMOCOCCAL-13 2018 Implants Device Identifier Shelf Expiration Date Model / Serial / Lot Implanted Type Area Manufactur er 10/27/2019 [id number] / / [id number] Stent Clnc Wallflex Otw [id number] Surgical N/A: N/A [facility] 30mm - [id number] Stents ENDOSCOPY Implanted: 02/18/2018 (Quantity not on file) Procedures Comments Procedure Name Priority Date/Time Associated Diagnosis COLONOSCOPY 05/25/2018 Mass of colon 10:00 AM PRODUCTION PLANNING SUPERVISOR FL < 1 HOUR Routine 02/18/2018 Obstruction [...] 3 Fluoroscopy dose: 117 mGy Procedure Note [facility], Radiology Results Incoming - 02/18/2018 3:22 PM CDT EXAMINATION: FL 1 HOUR INDICATION: Pain IMPRESSION: Intraoperative fluoroscopy provided. No radiologist present for the procedure. Please see procedure note for detail. Fluoroscopic images: 3 Fluoroscopy dose: 117 mGy Performing Organization Address City/State/Zipcode Phone Number [facility] [address] [place] [address] * Surgical pathology request (01/14/2018 11:27 AM CDT) Only the most recent of 5 results within the time period is included. [facility] DEPARTMENT OF PATHOLOGY AND GENOMIC MEDICINE Surgical pathology report See link below for PDF Lab [facility] DEPARTMENT OF Report PATHOLOGY AND GENOMIC MEDICINE Result status This is Supplemental Report [facility] DEPARTMENT OF for [id number] PATHOLOGY AND GENOMIC MEDICINE Performing Organization Address City/State/Zipcode Phone Number [facility] DEPARTMENT OF [address] [place] [address] PATHOLOGY AND GENOMIC MEDICINE * CBC with platelet and differential (01/04/2018 12:00 AM CDT) WBC 15.1 (H) 3.8 - 10.8 Thousand/uL [facility] [place] RBC 3.90 (L) 4.20 - 5.80 Million/uL [facility] [place] HGB 9.6 (L) 13.2 - 17.1 g/dL [facility] [place] HCT 31.0 (L) 38.5 - 50.0 % [facility] MCV 79.5 (L) 80.0 - 100.0 fL [facility] MCH 24.6 (L) 27.0 - 33.0 pg [facility] MCHC 31.0 (L) 32.0 - 36.0 g/dL [facility] RDW 14.4 11.0 - 15.0 % [facility] Platelet count 610 (H) 140 - 400 Thousand/uL [facility] MPV 11.5 7.5 - 12.5 fL [facility] Neutrophils, absolute 10,993 (H) 1,500 - 7,800 cells/uL [facility] Lymphocytes, absolute 1,797 850 - 3,900 cells/uL [facility] Monocytes, absolute 1,555 (H) 200 - 950 cells/uL [facility] Eosinophils, absolute 634 (H) 15 - 500 cells/uL [facility] Basophils, absolute 121 0 - 200 cells/uL [facility] Neutrophils 72.8 % [facility] Lymphocytes 11.9 % [facility] Monocytes 10.3 % [facility] Eosinophils 4.2 % [facility] Basophils + RC 0.8 % [facility] Comment Comment: [facility] WE RECEIVED YOUR HANDWRITTEN [place] TEST ORDER AND PERFORMED A CBC (INCLUDES HEMOGRAM, PLATELET AND DIFFERENTIAL). IF THIS IS NOT WHAT YOU INTENDED TO ORDER, PLEASE CONTACT YOUR LOCAL FLATWORK PRESSER IMMEDIATELY SO THAT WE CAN ADJUST OUR BILLING APPROPRIATELY. YOU MAY ALSO INQUIRE ABOUT ALTERNATIVE OR ADDITIONAL TESTING. Narrative Performed At FASTING: UNKNOWN [facility] Resulting Agency Comment Performing Organization Information: Site ID: [id number] Name: [facility] Address: [address] [place] [address] Director: Ivone Sow Performing Organization Address [facility] Phone Number [facility] [address] [place] [address] * Hepatic function panel (01/04/2018 12:00 AM CDT) Protein 6.4 6.1 - 8.1 g/dL [facility] Albumin, S 3.9 3.6 - 5.1 g/dL [facility] Globulin, total 2.5 1.9 - 3.7 g/dL (calc) [facility] Albumin/globulin ratio 1.6 1.0 - 2.5 (calc) [facility] Total bilirubin 0.3 0.2 - 1.2 mg/dL [facility] Bilirubin direct 0.1 < OR=0.2 mg/dL [facility] Bilirubin, indirect 0.2 0.2 - 1.2 mg/dL (calc) [facility] Alkaline phosphatase 280 (H) 40 - 115 U/L [facility] AST 33 10 - 35 U/L [facility] ALT 31 9 - 46 U/L [facility] Comment Comment: [facility] We received your handwritten [facility] test order and performed the AMA defined Hepatic Function Panel. If this is not what you intended to order, please contact your local client relationship manager immediately so that we may adjust our billing appropriately. You may also inquire about alternative or additional testing. Narrative Performed At FASTING: UNKNOWN [facility] Resulting Agency Comment Performing Organization Information: Site ID: [id number] Name: [facility] Address: [address] [place] [address] Director: Ivone Sow Performing Organization Address City/[facility] Phone Number [facility] [address] [place], [place] [phone] after 07/21/2017 Insurance Payer Benefit Subscriber ID Type Phone Address Plan / Group COMMERCIAL MISC MISC xxxxxxxx Commercial [employer] BCBS BCBS xxxxxxxxxxxx PPO CHOICE PPO/FEDERA L EMPL PPO MEDICARE MEDICARE xxxxxxxxxxx Medicare [place], [place] PART A [place] B ) [place] [address] Advance Directives Patient has advance care planning documents on file. For more information, lana singleton contact: Enoc Calderón [address] [place] [address]
[2018-07-22] MEDS: SODIUM CHLORIDE 0.9% 1000ML 1,000 ML IV SCH (13:07)
--- NOTE | 2018-07-22 13:16 | NUR ---
Report to Shreya Chowdhury on Obs at [facility].
[2018-07-22] MEDS ORDERED: METRONIDAZOLE 500MG/NS 100ML 100 ML IV SCH (14:00)
[2018-07-22] MEDS ORDERED: ONDANSETRON ODT8 MG (14:21)
[2018-07-22] MEDS ORDERED: AMLODIPINE BESYL5 MG (14:21)
[2018-07-22] MEDS ORDERED: BENAZEPRIL HCL40 MG (14:21)
[2018-07-22] MEDS ORDERED: PENTAZOCINE-NA1 EACH (14:21)
--- NOTE | 2018-07-22 14:40 | NUR ---
Pt was unable to urniate before transfer to [facility]. Pt was being given fluids via IV and PO. No N/V. Pt states he is unable to urinate at this time.
[2018-07-22 14:45] VITALS: BP 115/74
--- NOTE | 2018-07-22 14:45 | NUR ---
Received pt from free standing ER. Pt is aox4 and able to verbalize needs. Denies any pain at this time, pt states he received morphine in ER and it helped pain level. Pt continues on IVF NS @ 100ML and well tolerated. Pt is to have 2 units PRBC today. Called lab for type and screen to be done.
[2018-07-22 15:46] VITALS: BP 115/74
[2018-07-22] MEDS ORDERED: SODIUM CHLORIDE 0.9% 250ML 250 ML ONE ×3 (18:10→23:11)
[2018-07-22 19:20] VITALS: BP 137/84
[2018-07-22 19:40] VITALS: BP 137/84
--- NOTE | 2018-07-22 20:00 | NUR ---
First unit of blood transfusion completed, no adverse reaction noted. Condition stable without respiratory distress. call light within reach, assisted patient with ADLs.
[2018-07-22] MEDS ORDERED: MORPHINE SULFATE INJ 4 MG/ML INJ 1ML IV PRN (20:30)
[2018-07-22] MEDS: ONDANSETRON HCL INJ 2MG/ML 2ML 2 MG/ML VIAL IV PRN (20:36)
--- NOTE | 2018-07-22 21:33 | NUR ---
Patient has Flagyl scheduled and he has allergy to Flagyl listed. Spoke with Dr. Macdonald regarding the patients allergy to Flagyl, MD ordered to discontinue the Flagyl.
--- NOTE | 2018-07-22 23:25 | NUR ---
Second unit of blood transfusion started, patient tolerating transfusion without adverse reaction. Primary nurse observing the patient closely for any reaction. Vital signs stable, family member also in the room with the patient.
[2018-07-23 01:00] VITALS: BP 154/91
--- NOTE | 2018-07-23 01:50 | NUR ---
Second unit of transfusion completed. patient tolerated transfusion without adverse reaction. call light within easy reach, assisted with ADLs
[2018-07-23] MEDS: SODIUM CHLORIDE 0.9% 1000ML 1,000 ML IV SCH (02:44)
--- NOTE | 2018-07-23 03:45 | NUR ---
PATIENT ASSISTED TO THE RESTROOM, HE'S NOW BACK IN BED WITHOUT DISTRESS AND HE DENIES PAIN. CALL LIGHT WITHIN EASY REACH, INSTRUCTED TO CALL FOR ASSISTANCE NEEDED.
[2018-07-23 04:30] VITALS: BP 150/87
[2018-07-23 06:34] LABS: BASOPHILS % 0.1 % (0.0-1.0); EOSINOPHILS % 0.1 % (0.0-6.0); HEMATOCRIT 27.7 % (38.2-49.6); HEMOGLOBIN 9.3 g/dL (14.0-18.0); LYMPHOCYTES # (AUTO) 0.6 (1.0-3.2); LYMPHOCYTES % 3.5 % (18.0-39.1); MEAN CORPUSCULAR HEMOGLOBIN 25.1 pg (28-32); MEAN CORPUSCULAR HGB CONC 33.6 g/dL (31-35); MEAN CORPUSCULAR VOLUME 74.9 fL (81-99); MONOCYTES # (AUTO) 1.7 (0.2-0.8); MONOCYTES % 9.6 % (4.4-11.3); NEUTROPHILS # (AUTO) 15.1 (2.1-6.9); NEUTROPHILS % 85.9 % (38.7-80.0); PLATELET COUNT 752 x10e3/uL (140-360); RED CELL DISTRIBUTION WIDTH 17.5 % (11.7-14.4)
--- NOTE | 2018-07-23 07:42 | NUR ---
patient resting in bed, AAOx3, Denies any pain this time, not in any distress, call light in reach, encouraged to call for any assistance
[2018-07-23] MEDS: ONDANSETRON HCL INJ 2MG/ML 2ML 2 MG/ML VIAL IV PRN (07:47)
[2018-07-23 07:48] VITALS: BP 161/92
[2018-07-23 08:04] LABS: EOSINOPHILS % (MANUAL) 1 % (0-7); LYMPHOCYTES % (MANUAL) 3 % (19-48); MONOCYTES % (MANUAL) 12 % (3.4-9.0); NEUTROPHILS % (MANUAL) 84 % (40-74)
[2018-07-23 08:05] LABS: ANISOCYTOSIS SLIGHT; MICROCYTOSIS SLIGHT; PLATELET ESTIMATE SLIGHTLY INCREASED; PLATELET MORPHOLOGY COMMENT NORMAL
--- NOTE | 2018-07-23 08:20 | NUR ---
Dr Macdonald here for rounds, notified BP161/92. No new orders recvd. patient stable, will recheck BP
[2018-07-23 08:49] VITALS: BP 161/92
[2018-07-23] MEDS ORDERED: LEVAQUIN500 MG PO (08:54)
--- NOTE | 2018-07-23 09:32 | NUR ---
Patient discharged home, prescription given, patient aware about possible side effects of prescribed antibiotic . IV canula (2) removed with tip intact, no ss of infiltration noted, at bed side giving ride, transported via wheel chair o front lobby, denies any pain, no distress noted this time
--- NOTE | 2018-07-24 01:22 | Discharge Summary ---
DISCHARGE DIAGNOSES 1. Colitis. 2. Abdominal pain. 3. History of stage IV colon cancer. 4. Hypertension. HISTORY OF PRESENT ILLNESS AND HOSPITAL COURSE: See hospital chart for full details. Patient is a gentleman who presented with some abdominal pain and on CT scan was shown to have known hepatic mets of the sigmoid colon with some possible thickening of the sigmoid colon with maybe evidence of colitis. So, he was placed on IV antibiotics with Levaquin. By the next morning, he stated that he was feeling better, but he was not very happy with the hospital bed here. He already had outpatient followup on Wednesday with his oncologist. He really wanted to be discharged home on p.o. antibiotics and he will continue with his home medications and follow up on Wednesday with his oncologist. So I reiterate to the patient he is welcome to stay longer if need be and he said no, he said he wanted to be discharged now and since his vital signs were stable, discharged home with p.o. Levaquin. Please see hospital chart for full details. Job#: [id number] ARISTE[facility]
== END 2018-07-23 09:52 | disposition home or self-care (01) ==
LOC: FSED 09:59 → ERHOLD 12:09 → IMCU 14:51
PROVIDERS: ADMIT Internal Medicine; ATTEND Internal Medicine
DX: K52.9 Noninfective gastroenteritis and colitis, unspecified (principal); D64.9 Anemia, unspecified; C18.7 Malignant neoplasm of sigmoid colon; C78.7 Secondary malignant neoplasm of liver and intrahepatic bile duct; E03.9 Hypothyroidism, unspecified; Z98.0 Intestinal bypass and anastomosis status; Z88.8 Allergy status to other drugs, medicaments and biological substances; I10 Essential (primary) hypertension
CPT/HCPCS: 36415; 36430; 74177; 80053; 85025 ×2; 86850; 86900; 86920; 99284; G0378 ×2; J1956; J2270 ×2; J2405 ×2; J7030 ×2; J7050; P9016

== ENCOUNTER 2018-08-26 10:01 | Observation (INO) | payer MEDICARE, OTHER ==
[~2018-08-26] VITALS: Ht 162.6 cm; Wt 57.2 kg
[~2018-08-26 10:01] MED LIST: AMLODIPINE BESYL5 MG PO; BENAZEPRIL HCL40 MG PO; LEVAQUIN500 MG PO; ONDANSETRON ODT8 MG SL; PENTAZOCINE-NA1 EACH PO
--- OUTSIDE RECORDS SUMMARY | 2018-08-26 10:04 | XMS REPORT | Clinical Summary ---
Author Author [facility] Organization [facility] Address Unknown Phone Unavailable Care Team Providers Care Process Control Operator Name Role Phone Oscar Rush MD [...] Ventura MD 01/04/2018 Orders Only Gastroenterology after 08/25/2017 Social History Date Tobacco Use Types Packs/Day [...] Taken Vital Sign Reading 05/25/2018 10:35 AM ASSOCIATE SOFTWARE APPLICATION ENGINEER Blood Pressure 162/79 05/25/2018 10:35 AM ASSOCIATE SOFTWARE APPLICATION ENGINEER Pulse 76 05/25/2018 10:35 AM ASSOCIATE SOFTWARE APPLICATION ENGINEER Temperature 37.1 C (98.8 F) 05/25/2018 10:35 AM ASSOCIATE SOFTWARE APPLICATION ENGINEER Respiratory Rate 16 05/25/2018 10:35 AM ASSOCIATE SOFTWARE APPLICATION ENGINEER Oxygen Saturation 100% - Inhaled Oxygen - Concentration 01/20/2018 4:08 PM CDT Weight 53.5 kg (118 lb) 05/25/2018 8:54 AM ASSOCIATE SOFTWARE APPLICATION ENGINEER Height 162.6 cm (5' 4") 01/20/2018 4:08 PM CDT Body Mass Index 20.25 Plan of Treatment Health Maintenance Due Date Last Done Comments COLON CANCER SCREENING 2003 SHINGLES VACCINES (#1) 2003 INFLUENZA VACCINE 01/19/2018 65+ PNEUMOCOCCAL VACCINE 2018 (1 of 2 - PCV13) PNEUMOCOCCAL 2018 POLYSACCHARIDE VACCINE AGE 65 AND OVER Implants Device Identifier Shelf Expiration Date Model / Serial / Lot Implanted Type Area Manufactur er 10/27/2019 [id number] / / [id number] Stent Clnc Wallflex Otw [id number] Surgical N/A: N/A [facility] 30mm - [id number] Stents ENDOSCOPY Implanted: 02/18/2018 (Quantity not on file) Procedures Comments Procedure Name Priority Date/Time Associated Diagnosis COLONOSCOPY 05/25/2018 Mass of colon 10:00 AM ASSOCIATE SOFTWARE APPLICATION ENGINEER FL < 1 HOUR Routine 02/18/2018 Obstruction [...] PANEL Routine 01/04/2018 12:00 AM CDT after 08/25/2017 Results * FL < 1 Hour (02/18/2018 2:55 PM CDT) Narrative Performed At EXAMINATION:FL 1 HOUR [facility] INDICATION:Pain IMPRESSION: Intraoperative fluoroscopy provided. No radiologist present for the procedure. Please see procedure note for detail. Fluoroscopic images: 3 Fluoroscopy dose: 117 mGy Procedure Note Interface, Radiology Results Incoming - 02/18/2018 3:22 PM CDT EXAMINATION: FL 1 HOUR INDICATION: Pain IMPRESSION: Intraoperative fluoroscopy provided. No radiologist present for the procedure. Please see procedure note for detail. Fluoroscopic images: 3 Fluoroscopy dose: 117 mGy Performing Organization Address City/State/Zipcode Phone Number [facility] [address] [place] [address] * Surgical pathology request (01/14/2018 11:27 AM CDT) Only the most recent of 5 results within the time period is included. [facility] DEPARTMENT OF PATHOLOGY AND GENOMIC MEDICINE Surgical pathology report See link below for PDF Lab [facility] DEPARTMENT OF Report PATHOLOGY AND GENOMIC MEDICINE Result status This is Supplemental Report [facility] DEPARTMENT OF for [id number] PATHOLOGY AND GENOMIC MEDICINE Performing Organization Address City/State/Zipcode Phone Number [facility] DEPARTMENT OF [address] [place] [address] PATHOLOGY AND GENOMIC MEDICINE * CBC with platelet and differential (01/04/2018 12:00 AM CDT) WBC 15.1 (H) 3.8 - 10.8 Thousand/uL [employer] [facility] [place] RBC 3.90 (L) 4.20 - 5.80 Million/uL [employer] [place] HGB 9.6 (L) 13.2 - 17.1 g/dL [employer] [facility] [place] HCT 31.0 (L) 38.5 - 50.0 % [employer] [place] MCV 79.5 (L) 80.0 - 100.0 fL [employer] [place] MCH 24.6 (L) 27.0 - 33.0 pg [employer] [place] MCHC 31.0 (L) 32.0 - 36.0 g/dL [employer] [place] RDW 14.4 11.0 - 15.0 % [employer] [place] Platelet count 610 (H) 140 - 400 Thousand/uL [employer] [place] MPV 11.5 7.5 - 12.5 fL [employer] [place] Neutrophils, absolute 10,993 (H) 1,500 - 7,800 cells/uL [employer] [place] Lymphocytes, absolute 1,797 850 - 3,900 cells/uL [employer] [place] Monocytes, absolute 1,555 (H) 200 - 950 cells/uL [employer] [place] Eosinophils, absolute 634 (H) 15 - 500 cells/uL [employer] [place] Basophils, absolute 121 0 - 200 cells/uL [employer] [place] Neutrophils 72.8 % [employer] [place] Lymphocytes 11.9 % [employer] [place] Monocytes 10.3 % [employer] [place] Eosinophils 4.2 % [employer] [place] Basophils + RC 0.8 % [employer] [place] Comment Comment: [employer] WE RECEIVED YOUR HANDWRITTEN [place] TEST ORDER AND PERFORMED A CBC (INCLUDES HEMOGRAM, PLATELET AND DIFFERENTIAL). IF THIS IS NOT WHAT YOU INTENDED TO ORDER, PLEASE CONTACT YOUR LOCAL CHIEF NUCLEAR MEDICINE TECHNOLOGIST IMMEDIATELY SO THAT WE CAN ADJUST OUR BILLING APPROPRIATELY. YOU MAY ALSO INQUIRE ABOUT ALTERNATIVE OR ADDITIONAL TESTING. Narrative Performed At FASTING: UNKNOWN [facility] Resulting Agency Comment Performing Organization Information: Site ID: [id number] Name: [facility] Address: [address] [place] [id number] Director: Ivone Sow Performing Organization Address City/[facility] Phone Number [employer] [facility] [place] [address] [place] [phone] * Hepatic function panel (01/04/2018 12:00 AM CDT) Protein 6.4 6.1 - 8.1 g/dL [employer] [place] Albumin, S 3.9 3.6 - 5.1 g/dL [facility] [place] Globulin, total 2.5 1.9 - 3.7 g/dL (calc) [facility] [facility] [place] Albumin/globulin ratio 1.6 1.0 - 2.5 (calc) [employer] [place] Total bilirubin 0.3 0.2 - 1.2 mg/dL [employer] [facility] [place] Bilirubin direct 0.1 < OR=0.2 mg/dL [employer] [place] Bilirubin, indirect 0.2 0.2 - 1.2 mg/dL (calc) [facility] [facility] [place] Alkaline phosphatase 280 (H) 40 - 115 U/L [facility] [facility] [place] AST 33 10 - 35 U/L [employer] [facility] [place] ALT 31 9 - 46 U/L [facility] [facility] [place] Comment Comment: [employer] We received your handwritten [place] test order and performed the AMA defined Hepatic Function Panel. If this is not what you intended to order, please contact your local new client banking services clerk immediately so that we may adjust our billing appropriately. You may also inquire about alternative or additional testing. Narrative Performed At FASTING: UNKNOWN [facility] Resulting Agency Comment Performing Organization Information: Site ID: [id number] Name: [facility] Address: [address] [place] [id number] Director: Ivone Sow Performing Organization Address City/[facility] Centercode Phone Number [employer] [place] [address] [place] [phone] after 08/25/2017 Insurance Payer Benefit Subscriber ID Type Phone Address Plan / Group COMMERCIAL MISC MISC xxxxxxxx Commercial [employer] BCBS BCBS xxxxxxxxxxxx PPO CHOICE PPO/FEDERA L EMPL PPO MEDICARE MEDICARE xxxxxxxxxxx Medicare [place], [place] PART A AND B ([place]) [place] [address] Advance Directives Patient has advance care planning documents on file. For more information, lana singleton contact: Enoc Calderón [address] [place] [address]
[2018-08-26 12:26] LABS: EOSINOPHILS # (AUTO) 0.2 (0.0-0.4); EOSINOPHILS % 1.9 % (0.0-6.0); HEMATOCRIT 24.4 % (38.2-49.6); LYMPHOCYTES # (AUTO) 0.4 (1.0-3.2); LYMPHOCYTES % 4.8 % (18.0-39.1); MEAN CORPUSCULAR HEMOGLOBIN 25.8 pg (28-32); MEAN CORPUSCULAR HGB CONC 33.2 g/dL (31-35); MEAN CORPUSCULAR VOLUME 77.7 fL (81-99); MONOCYTES # (AUTO) 0.3 (0.2-0.8); MONOCYTES % 3.9 % (4.4-11.3); NEUTROPHILS # (AUTO) 7.6 (2.1-6.9); PLATELET COUNT 387 x10e3/uL (140-360); RED BLOOD COUNT 3.14 x10e6/uL (4.3-5.7); RED CELL DISTRIBUTION WIDTH 26.7 % (11.7-14.4)
[2018-08-26 12:27] LABS: HEMOGLOBIN 8.1 g/dL (14.0-18.0)
--- NOTE | 2018-08-26 12:38 | Diagnostic Imaging Report ---
EXAM: CHEST SINGLE (PORTABLE) DATE: 08/26/2018 11:08 AM INDICATION: Shortness of breath COMPARISON: Chest x-ray, 06/16/2018 FINDINGS: Lines and tubes: Interval placement of right venous catheter, with the tip traced at least to the cavoatrial junction level. On this reverse lordotic projection, it is uncertain if this represents a subclavian catheter or a PICC. Heart size normal. There is elevation of the right hemidiaphragm with basilar atelectasis and a small right pleural effusion. This finding is new since the previous exam. The left lung remains expanded and clear. No pneumothorax. Upper abdomen unremarkable. No acute bony abnormality. IMPRESSION: 1. Moderate right diaphragm elevation, atelectasis in the right lower lobe and small right pleural effusion have developed since last exam. 2. Interval placement of right sided venous catheter which may be subclavian or PICC. No pneumothorax. Signed by: Dr. Van Haddad M.D. on 08/26/2018 12:35 PM
[2018-08-26 12:39] LABS: INR 1.72; PROTHROMBIN TIME 20.8 seconds (11.9-14.5)
[2018-08-26 12:40] LABS: PARTIAL THROMBOPLASTIN TIME 39.4 seconds (23.8-35.5)
[2018-08-26 12:45] LABS: ALANINE AMINOTRANSFERASE 62 IU/L (0-55); ALBUMIN/GLOBULIN RATIO 0.5 (0.8-2.0); ALKALINE PHOSPHATASE 807 IU/L (40-150); ANION GAP 16.3 mmol/L (8-16); BLOOD UREA NITROGEN 47 mg/dL (7-26); BUN/CREATININE RATIO 96 (6-25); CALCIUM 8.9 mg/dL (8.4-10.2); CARBON DIOXIDE 20 mmol/L (22-29); CHLORIDE 98 mmol/L (98-107); CREATININE, SERUM 0.49 mg/dL (0.72-1.25); EST GLOMERULAR FILTRATION RATE > 60 ML/MIN (60-); POTASSIUM 4.3 mmol/L (3.5-5.1); SODIUM 130 mmol/L (136-145)
[2018-08-26 12:55] LABS: GLUCOSE 49 mg/dL (74-118)
[2018-08-26] MEDS ORDERED: DEXTROSE 50% SYRINGE 50 ML IV STA (13:11)
[2018-08-26] MEDS ORDERED: DEXTROSE 5%/0.9% SOD CHL 1,000 ML IV ONE (13:15)
[2018-08-26] MEDS ORDERED: MORPHINE SULFATE 5 MG/ML VIAL IV PRN (13:30)
[2018-08-26] MEDS ORDERED: ONDANSETRON HCL INJ 2MG/ML 2ML 2 MG/ML VIAL IV PRN (13:30)
[2018-08-26] MEDS ORDERED: MORPHINE SULFATE INJ 4 MG/ML INJ 1ML IV PRN (13:45)
--- NOTE | 2018-08-26 15:55 | NUR ---
GAYLABOATBUILDER [employer] AT BEDSIDE FOR RE-EVAL AND DISCUSSING THE CURRENT PLAN OF CARE WITH PATIENT AND FAMILY,VERBALIZED UNDERSTADING. NO SIGNS OF ACUTE DISTRESS NOTED AT THIS TIME.
--- OUTSIDE RECORDS SUMMARY | 2018-08-26 16:33 | XMS REPORT | Clinical Summary ---
Author Author [facility] Organization [facility] Address Unknown Phone Unavailable Care Team Providers Care Peoplesoft Consultant Name Role Phone Oscar Rush MD PCP [...] Taken Vital Sign Reading 05/25/2018 10:35 AM MANAGER SWITCH Blood Pressure 162/79 05/25/2018 10:35 AM MANAGER SWITCH Pulse 76 05/25/2018 10:35 AM MANAGER SWITCH Temperature 37.1 C (98.8 F) 05/25/2018 10:35 AM MANAGER SWITCH Respiratory Rate 16 05/25/2018 10:35 AM MANAGER SWITCH Oxygen Saturation 100% - Inhaled Oxygen - Concentration 01/20/2018 4:08 PM CDT Weight 53.5 kg (118 lb) 05/25/2018 8:54 AM MANAGER SWITCH Height 162.6 cm (5' 4") 01/20/2018 4:08 [...] Lot Implanted Type Area Manufactur er 10/27/2019 [id number] / / [id number] Stent Clnc Wallflex Otw [id number] Surgical N/A: N/A [facility] 30mm - [id number] Stents ENDOSCOPY Implanted: 02/18/2018 (Quantity not on file) Procedures Comments Procedure Name Priority Date/Time Associated Diagnosis COLONOSCOPY 05/25/2018 Mass of colon 10:00 AM MANAGER SWITCH FL < 1 HOUR Routine 02/18/2018 Obstruction [...] Performing Organization Address City/State/Zipcode Phone Number [facility] [address] [place] [address] * Surgical pathology request (01/14/2018 11:27 AM CDT) Only the most recent of 5 results within the time period is included. [facility] DEPARTMENT OF PATHOLOGY AND GENOMIC MEDICINE Surgical pathology report See link below for PDF Lab [facility] DEPARTMENT OF Report PATHOLOGY AND GENOMIC MEDICINE Result status This is Supplemental Report [facility] DEPARTMENT OF for [id number] PATHOLOGY AND GENOMIC MEDICINE Performing Organization Address City/State/Zipcode Phone Number [facility] DEPARTMENT OF [address] [place] [address] PATHOLOGY AND GENOMIC MEDICINE * CBC with platelet and differential (01/04/2018 12:00 AM CDT) WBC 15.1 (H) 3.8 - 10.8 Thousand/uL [facility] [place] RBC 3.90 (L) 4.20 - 5.80 Million/uL [facility] [place] HGB 9.6 (L) 13.2 - 17.1 g/dL [facility] [place] HCT 31.0 (L) 38.5 - 50.0 % [facility] [place] MCV 79.5 (L) 80.0 - 100.0 fL [facility] [place] MCH 24.6 (L) 27.0 - 33.0 pg [facility] [place] MCHC 31.0 (L) 32.0 - 36.0 g/dL [facility] [place] RDW 14.4 11.0 - 15.0 % [facility] [place] Platelet count 610 (H) 140 - 400 Thousand/uL [facility] [place] MPV 11.5 7.5 - 12.5 fL [facility] [place] Neutrophils, absolute 10,993 (H) 1,500 - 7,800 cells/uL [facility] [place] Lymphocytes, absolute 1,797 850 - 3,900 cells/uL [facility] [place] Monocytes, absolute 1,555 (H) 200 - 950 cells/uL [facility] [place] Eosinophils, absolute 634 (H) 15 - 500 cells/uL [facility] [place] Basophils, absolute 121 0 - 200 cells/uL [facility] [place] Neutrophils 72.8 % [facility] [place] Lymphocytes 11.9 % [facility] [place] Monocytes 10.3 % [facility] [place] Eosinophils 4.2 % [facility] [place] Basophils + RC 0.8 % [facility] [place] Comment Comment: [facility] WE RECEIVED YOUR HANDWRITTEN [place] TEST ORDER AND PERFORMED A CBC (INCLUDES HEMOGRAM, PLATELET AND DIFFERENTIAL). IF THIS IS NOT WHAT YOU INTENDED TO ORDER, PLEASE CONTACT YOUR LOCAL SHELLFISH BED WORKER IMMEDIATELY SO THAT WE CAN ADJUST OUR BILLING APPROPRIATELY. YOU MAY ALSO INQUIRE ABOUT ALTERNATIVE OR ADDITIONAL TESTING. Narrative Performed At FASTING: UNKNOWN [facility]ST Resulting Agency Comment Performing Organization Information: Site ID: [id number] Name: [facility] Address: [address] [place] [phone] Director: Ivone Sow Performing Organization Address City/[facility] Vegas[facility] Phone Number [employer] [place] [address] [place] [phone] * Hepatic function panel (01/04/2018 12:00 AM CDT) Protein 6.4 6.1 - 8.1 g/dL [facility] [place] Albumin, S 3.9 3.6 - 5.1 g/dL [facility] [place] Globulin, total 2.5 1.9 - 3.7 g/dL (calc) [facility] [place] Albumin/globulin ratio 1.6 1.0 - 2.5 (calc) [facility] [place] Total bilirubin 0.3 0.2 - 1.2 mg/dL [facility] [place] Bilirubin direct 0.1 < OR=0.2 mg/dL [facility] [place] Bilirubin, indirect 0.2 0.2 - 1.2 mg/dL (calc) [facility] [place] Alkaline phosphatase 280 (H) 40 - 115 U/L [facility] [place] AST 33 10 - 35 U/L [facility] [place] ALT 31 9 - 46 U/L [facility] [place] Comment Comment: [facility] We received your handwritten [place] test order and performed the AMA defined Hepatic Function Panel. If this is not what you intended to order, please contact your local sales representative printing supplies immediately so that we may adjust our billing appropriately. You may also inquire about alternative or additional testing. Narrative Performed At FASTING: UNKNOWN QUEST Resulting Agency Comment Performing Organization Information: Site ID: [id number] Name: [facility] Address: [address] [place] [id number] Director: Ivone Sow Performing Organization Address City/[facility] Vegascode Phone Number [employer] [place] [address] [place] [phone] after 08/25/2017 Insurance Payer Benefit Subscriber ID Type Phone Address Plan / Group COMMERCIAL MISC MISC xxxxxxxx Commercial [employer] BCBS BCBS xxxxxxxxxxxx PPO CHOICE PPO/FEDERA L EMPL PPO MEDICARE MEDICARE xxxxxxxxxxx Medicare [place], [place] PART A AND B ([place]) [place] [address] Advance Directives Patient has advance care planning documents on file. For more information, lana singleton contact: Enoc Calderón [address] [place] [address]
--- NOTE | 2018-08-26 17:45 | NUR ---
PATIENT TRANSFERRED TO HOSPITAL BED, TOLERATED WELL. NO SIGNS OF ACUTE DISTRESS NOTED AT THIS TIME.
--- NOTE | 2018-08-26 18:50 | NUR ---
VERBAL REPORT GIVEN TO JARET BYNUM.
[2018-08-26] MEDS ORDERED: SODIUM CHLORIDE 0.9% 250ML 250 ML IV ONE (19:00)
[2018-08-26] MEDS ORDERED: XELODA500 MG PO (19:35)
[2018-08-26] MEDS ORDERED: LIDOCAINE1 EA TOP (19:35)
[2018-08-26] MEDS ORDERED: DOXYCYCLINE HY100 MG PO (19:35)
[2018-08-26] MEDS ORDERED: SPIRONOLACTONE25 MG PO (19:35)
[2018-08-26] MEDS ORDERED: DEPO-TESTO200 MG/1 M INJ (19:35)
[2018-08-26] MEDS ORDERED: NATURE-THROID32.5 MG PO (19:38)
[2018-08-26 19:42] LABS: BILIRUBIN,URINE NEGATIVE (NEGATIVE); CLARITY,URINE CLEAR (CLEAR); COLOR,URINE YELLOW (YELLOW); KETONES,URINE NEGATIVE (NEGATIVE); LEUKOCYTE ESTERASE ,URINE NEGATIVE (NEGATIVE); NITRITE,URINE NEGATIVE (NEGATIVE); PROTEIN,URINE DIPSTICK NEGATIVE (NEGATIVE); URINE UROBILINOGEN 0.2 mg/dL (0.2 - 1)
[2018-08-26 19:54] LABS: BACTERIA,URINE MODERATE /HPF; EPITHELIAL CELLS,URINE MODERATE /LPF; RBC,URINE 0-5 /HPF (0-5); WBC,URINE (MAN) 0-5 /HPF (0-5)
[2018-08-26 19:55] LABS: AMORPHOUS SEDIMENT,URINE FEW (FEW)
--- NOTE | 2018-08-26 22:42 | NUR ---
received patient from er, with blood transfusing to right UA single lumen PICC. aaox3, breathing even and unlabored. skin pale, cool, and intact. small stage 1 to coccyx- allevyn dressing applied. alternating pressure pump on bed. no distress. denies needs. bed locked and in lowest position, call light within easy reach. updated patient to plan of care.
[2018-08-26 22:45] VITALS: BP 114/69
--- NOTE | 2018-08-27 00:04 | NUR ---
1st unit of blood complete, patient tolerated well. will admin Lasix per orders.
[2018-08-27 00:25] VITALS: BP 114/69
[2018-08-27] MEDS ORDERED: SODIUM CHLORIDE 0.9% 250ML 250 ML ONE (00:37)
--- NOTE | 2018-08-27 00:50 | NUR ---
2nd unit of blood administered, remained with patient for first 15 min, tolerated well. no adverse reactions noted. vitals documented. increased blood transfusion rate. will continue to monitor the patient closely.
--- NOTE | 2018-08-27 03:48 | NUR ---
2nd unit of blood complete, tolerated transfusion.
[2018-08-27] MEDS ORDERED: FUROSEMIDE INJ 10 MG/ML 2 ML VIAL ONE (03:49)
[2018-08-27 04:00] VITALS: BP 123/82
[2018-08-27] MEDS ORDERED: FUROSEMIDE INJ 10 MG/ML 2 ML VIAL IV ONE ×2 (04:00)
[2018-08-27 06:16] LABS: BASOPHILS % 0.1 % (0.0-1.0); HEMATOCRIT 32.2 % (38.2-49.6); HEMOGLOBIN 10.8 g/dL (14.0-18.0); LYMPHOCYTES # (AUTO) 0.4 (1.0-3.2); LYMPHOCYTES % 5.4 % (18.0-39.1); MEAN CORPUSCULAR HEMOGLOBIN 26.5 pg (28-32); MEAN CORPUSCULAR HGB CONC 33.5 g/dL (31-35); MEAN CORPUSCULAR VOLUME 78.9 fL (81-99); MONOCYTES # (AUTO) 0.3 (0.2-0.8); MONOCYTES % 4.2 % (4.4-11.3); NEUTROPHILS # (AUTO) 6.6 (2.1-6.9); NEUTROPHILS % 89.9 % (38.7-80.0); PLATELET COUNT 277 x10e3/uL (140-360); RED BLOOD COUNT 4.08 x10e6/uL (4.3-5.7); RED CELL DISTRIBUTION WIDTH 24.8 % (11.7-14.4)
[2018-08-27] MEDS ORDERED: PENTAZOCINE HCL PO PRN (06:30)
[2018-08-27] MEDS ORDERED: [UNRECOGNIZED DRUG - OTHER] PO PRN (06:30)
[2018-08-27] MEDS ORDERED: NALOXONE HCL PO PRN (06:30)
[2018-08-27] MEDS ORDERED: ONDANSETRON 8 MG SL PRN (06:30)
[2018-08-27] MEDS ORDERED: TESTOSTERONE CYPIONATE 200 MG INJ PRN (06:30)
[2018-08-27] MEDS ORDERED: ONDANSETRON HCL 4 MG ORAL DISINTEGRATING TAB PO PRN (06:56)
[2018-08-27] MEDS ORDERED: PENTAZOCINE/NALOXONE 1 TAB PO PRN (07:00)
--- NOTE | 2018-08-27 07:25 | NUR ---
Received patient and walking rounds complete. Patient awake at this time resting in bed, no signs of distress. Repositioned patient onto side. Call light in reach, will continue to monitor.
[2018-08-27 07:30] VITALS: BP 121/75
[2018-08-27 08:45] VITALS: BP 121/78
[2018-08-27] MEDS ORDERED: SPIRONOLACTONE 25 MG TAB PO SCH (09:00)
[2018-08-27] MEDS ORDERED: BENAZEPRIL HCL 10 MG TAB PO SCH (09:00)
[2018-08-27] MEDS ORDERED: LIDOCAINE HCL TOP SCH (09:00)
[2018-08-27] MEDS ORDERED: AMLODIPINE BESYLATE 5 MG TAB PO SCH (09:00)
[2018-08-27] MEDS ORDERED: DOXYCYCLINE HYCLATE TABLET 100 MG TAB PO SCH (09:00)
[2018-08-27] MEDS ORDERED: NON-FORMULARY MEDICATION (Benazepril Hcl 40 MG) PO SCH (09:00)
[2018-08-27] MEDS ORDERED: THYROID PORK 65 MG PO SCH (09:00)
[2018-08-27] MEDS ORDERED: THYROID 60 MG TAB PO SCH (09:00)
--- NOTE | 2018-08-27 09:20 | NUR ---
Patient discharged from facility. Patient gathered all personal belongings, discharge instructions, and follow up information. No signs of distress when leaving facility.
--- NOTE | 2018-08-27 10:49 | Progress Note ---
DATE: SUBJECTIVE: The patient is a 63-year-old male. The patient is admitted for symptomatic iron-deficiency anemia, history of coagulopathy, history of colon cancer, and history of liver cancer. The patient is currently in pain, continues to receive morphine and also we will reinstate his home medications. The patient has received 2 units of PRBCs. OBJECTIVE: VITAL SIGNS: Temperature is 96.3, pulse of 81, respirations of 18, blood pressure is 122/82, and pulse oximetry of 97%. GENERAL: The patient is cachectic. HEENT: Normocephalic, atraumatic. Pupils are reactive to light and accommodation. CVS: S1, S2, tachy. ABDOMEN: Scaphoid, nontender, nondistended. EXTREMITIES: No clubbing, no cyanosis, no edema, and generalized muscle wasting. LABORATORY VALUES: From yesterday, white count was 8.53, hemoglobin of 8.1, hematocrit of 24.4, platelet count was 387, and neutrophil count was 7.6. The patient's chemistry; sodium was 130, BUN of 47, creatinine of 0.49, and glucose of 49. ALT and AST elevated at 95 and 62. Coags, INR was 1.72. MEDICATIONS: Morphine Zofran. ASSESSMENT: Symptomatic iron-deficiency anemia, chronic in nature. The patient has received 2 units of PRBCs. We will go ahead and recheck his hemoglobin and hematocrit. Cancer of the liver, cancer of the colon, and cachexia. We will continue monitoring the patient. The patient can be discharged home after CBC has been checked. DISPOSITION: Possible discharge to home as hemoglobin and hematocrit has marginally increased. MD TRISH AlegriaJ/MODL /[id number]
[2018-08-27 15:13] LABS: BAND NEUTROPHILS % (MANUAL) 2 %; LYMPHOCYTES % (MANUAL) 6 % (19-48); MONOCYTES % (MANUAL) 4 % (3.4-9.0); NEUTROPHILS % (MANUAL) 88 % (40-74)
[2018-08-27 15:14] LABS: PLATELET ESTIMATE ADEQUATE; PLATELET MORPHOLOGY COMMENT NORMAL; RBC MORPHOLOGY COMMENT NORMAL
== END 2018-08-27 09:23 | disposition home or self-care (01) ==
LOC: ER 10:01 → ERHOLD 14:33 → MED/SURG 22:43
PROVIDERS: ADMIT Internal Medicine; ATTEND Internal Medicine
DX: D50.0 Iron deficiency anemia secondary to blood loss (chronic) (principal); R64 Cachexia; Z85.038 Personal history of other malignant neoplasm of large intestine; Z85.05 Personal history of malignant neoplasm of liver; Z68.21 Body mass index [BMI] 21.0-21.9, adult
CPT/HCPCS: 36415 ×2; 36430; 71045; 80053; 81001; 82948; 85025 ×2; 85610; 85730; 86850; 86900; 86920; 93005; 99284; G0378 ×2; J1940; J2270; J7042; J7050 ×2; J7799; P9016 ×2

== ENCOUNTER 2018-09-01 16:31 | Inpatient (IN) | payer MEDICARE, OTHER ==
[~2018-09-01] VITALS: Ht 162.6 cm; Wt 51.3 kg
[~2018-09-01 16:31] MED LIST changes: +DEPO-TESTO200 MG/1 M INJ; +DOXYCYCLINE HY100 MG PO; +LIDOCAINE1 EA TOP; +NATURE-THROID32.5 MG PO; +SPIRONOLACTONE25 MG PO; +XELODA500 MG PO
--- OUTSIDE RECORDS SUMMARY | 2018-09-01 16:34 | XMS REPORT | Clinical Summary ---
Author Author [facility] Organization [facility] Address Unknown Phone Unavailable Care Team Providers Care Dampener Operator Name Role Phone Oscar Rush MD [...] Brandon Ventura MD 01/24/2018 Telephone Gastroenterology Brandon Vnetura MD Colon cancer metastasized to liver (Primary Dx) 01/20/2018 Office Visit Gastroenterology Florinda Leigh MA 01/18/2018 Telephone Gastroenterology Brandon Ventura MD 01/14/2018 Lab Lab Brandon Ventura MD Malignant neoplasm of sigmoid colon (Primary Dx) 01/14/2018 Orders Only GastroenterBrandon Anrdes MD 01/14/2018 Documentation Gastroenterology Brandon Ventura MD 01/13/2018 Telephone Gastroenterology Florinda Leigh MA 01/13/2018 Telephone Gastroenterology Brandon Ventura MD Blood in stool (Primary Dx); Weight loss; Elevated alkaline phosphatase level 01/04/2018 Office Visit Gastroenterology Brandon Ventura MD 01/04/2018 Orders Only Gastroenterology after 08/31/2017 Social History Date Tobacco Use Types Packs/Day [...] Taken Vital Sign Reading 05/25/2018 10:35 AM CONTACT LENS CUTTER Blood Pressure 162/79 05/25/2018 10:35 AM CONTACT LENS CUTTER Pulse 76 05/25/2018 10:35 AM CONTACT LENS CUTTER Temperature 37.1 C (98.8 F) 05/25/2018 10:35 AM CONTACT LENS CUTTER Respiratory Rate 16 05/25/2018 10:35 AM CONTACT LENS CUTTER Oxygen Saturation 100% - Inhaled Oxygen - Concentration 01/20/2018 4:08 PM CDT Weight 53.5 kg (118 lb) 05/25/2018 8:54 AM CONTACT LENS CUTTER Height 162.6 cm (5' 4") 01/20/2018 4:08 [...] Lot Implanted Type Area Manufactur er 10/27/2019 [id number] / / [id number] Stent Clnc Wallflex Otw [id number] Surgical N/A: N/A [facility] 30mm - [id number] Stents ENDOSCOPY Implanted: 02/18/2018 (Quantity not on file) Procedures Comments Procedure Name Priority Date/Time Associated Diagnosis COLONOSCOPY 05/25/2018 Mass of colon 10:00 AM CONTACT LENS CUTTER FL < 1 HOUR Routine 02/18/2018 Obstruction [...] PANEL Routine 01/04/2018 12:00 AM CDT after 08/31/2017 Results * FL < 1 Hour (02/18/2018 [...] Performing Organization Address City/State/Zipcode Phone Number [facility] [address] [place] [address] * Surgical pathology request (01/14/2018 11:27 AM CDT) Only the most recent of 5 results within the time period is included. [facility] DEPARTMENT OF PATHOLOGY AND GENOMIC MEDICINE Surgical pathology report See link below for PDF Lab [facility] DEPARTMENT OF Report PATHOLOGY AND GENOMIC MEDICINE Result status This is Supplemental Report [facility] DEPARTMENT OF for [id number] PATHOLOGY AND GENOMIC MEDICINE Performing Organization Address City/State/Zipcode Phone Number [facility] DEPARTMENT OF [address] [place] [address] PATHOLOGY AND GENOMIC MEDICINE * CBC with platelet and differential (01/04/2018 12:00 AM CDT) WBC 15.1 (H) 3.8 - 10.8 Thousand/uL [facility] [place] RBC 3.90 (L) 4.20 - 5.80 Million/uL [facility] [place] HGB 9.6 (L) 13.2 - 17.1 g/dL [facility] [place] HCT 31.0 (L) 38.5 - 50.0 % [facility] [place] MCV 79.5 (L) 80.0 - 100.0 fL [facility] [place] MCH 24.6 (L) 27.0 - 33.0 pg [facility] [place] MCHC 31.0 (L) 32.0 - 36.0 g/dL [facility] [place] RDW 14.4 11.0 - 15.0 % [facility] [place] Platelet count 610 (H) 140 - 400 Thousand/uL [facility] [place] MPV 11.5 7.5 - 12.5 fL [facility] [place] Neutrophils, absolute 10,993 (H) 1,500 - 7,800 cells/uL [facility] [place] Lymphocytes, absolute 1,797 850 - 3,900 cells/uL [facility] [place] Monocytes, absolute 1,555 (H) 200 - 950 cells/uL [facility] [place] Eosinophils, absolute 634 (H) 15 - 500 cells/uL [facility] [place] Basophils, absolute 121 0 - 200 cells/uL [facility] [place] Neutrophils 72.8 % [facility] [place] Lymphocytes 11.9 % [facility] [place] Monocytes 10.3 % [facility] [place] Eosinophils 4.2 % [facility] [place] Basophils + RC 0.8 % [facility] [place] Comment Comment: [facility] WE RECEIVED YOUR HANDWRITTEN [place] TEST ORDER AND PERFORMED A CBC (INCLUDES HEMOGRAM, PLATELET AND DIFFERENTIAL). IF THIS IS NOT WHAT YOU INTENDED TO ORDER, PLEASE CONTACT YOUR LOCAL FIRER POWERHOUSE IMMEDIATELY SO THAT WE CAN ADJUST OUR BILLING APPROPRIATELY. YOU MAY ALSO INQUIRE ABOUT ALTERNATIVE OR ADDITIONAL TESTING. Narrative Performed At FASTING: UNKNOWN QUEST Resulting Agency Comment Performing Organization Information: Site ID: [id number] Name: [facility] Address: [address] [place] [phone] Director: Ivone Sow Performing Organization Address City/[facility] Mexicocode Phone Number [facility] [place] [address] [place] [phone] * Hepatic function panel (01/04/2018 12:00 AM CDT) Protein 6.4 6.1 - 8.1 g/dL [facility] [place] Albumin, S 3.9 3.6 - 5.1 g/dL [facility] [place] Globulin, total 2.5 1.9 - 3.7 g/dL (calc) [facility] [place] Albumin/globulin ratio 1.6 1.0 - 2.5 (calc) [facility] [place] Total bilirubin 0.3 0.2 - 1.2 mg/dL [facility] [place] Bilirubin direct 0.1 < OR=0.2 mg/dL [facility] [place] Bilirubin, indirect 0.2 0.2 - 1.2 mg/dL (calc) [facility] [place] Alkaline phosphatase 280 (H) 40 - 115 U/L [facility] [place] AST 33 10 - 35 U/L [facility] [place] ALT 31 9 - 46 U/L [facility] [place] Comment Comment: [facility] We received your handwritten [place] test order and performed the AMA defined Hepatic Function Panel. If this is not what you intended to order, please contact your local special client bus driver immediately so that we may adjust our billing appropriately. You may also inquire about alternative or additional testing. Narrative Performed At FASTING: UNKNOWN [facility]ST Resulting Agency Comment Performing Organization Information: Site ID: RGA Name: [facility] Lab Address: [address] [place] [phone] Director: Ivone Sow Performing Organization Address City/[facility] Mexicocode Phone Number [facility] [place] [address] [place] [phone] after 08/31/2017 Insurance Payer Benefit Subscriber ID Type Phone Address Plan / Group COMMERCIAL MISC MISC xxxxxxxx Commercial [employer] BCBS BCBS xxxxxxxxxxxx PPO CHOICE PPO/FEDERA L EMPL PPO MEDICARE MEDICARE xxxxxxxxxxx Medicare [place], [place] PART A AND [place] ([place]) [place] [address] Advance Directives Patient has advance care planning documents on file. For more information, lana singleton contact: Enoc Calderón [address] [place] [address]
--- NOTE | 2018-09-01 18:02 | Diagnostic Imaging Report ---
EXAMINATION: CHEST SINGLE (PORTABLE) INDICATION: ^confirm picc placement COMPARISON: Chest x-ray 08/26/2018 FINDINGS: Right PICC line with tip at mid SVC. TUBES and LINES: None. LUNGS: Lungs are well inflated. There are bibasilar atelectasis. There is no evidence of pneumonia or pulmonary edema. PLEURA: Moderate right pleural effusion with associated elevation of the right hemidiaphragm. HEART AND MEDIASTINUM: The cardiomediastinal silhouette is unremarkable. There are atherosclerotic calcifications within the aorta. BONES AND SOFT TISSUES: No acute osseous lesion. Soft tissues are unremarkable. UPPER ABDOMEN: No free air under the diaphragm. IMPRESSION: Right PICC line with tip at mid SVC. Signed by: Dr. Du Lan M.D. on 09/01/2018 5:59 PM
[2018-09-01] MEDS ORDERED: DEXTROSE 50% SYRINGE 50 ML IV ONE ×3 (18:13→20:30)
[2018-09-01] MEDS ORDERED: SODIUM CHLORIDE 0.9% 1000ML 1,000 ML IV STA (18:15)
--- NOTE | 2018-09-01 18:55 | NUR ---
glucose checked @ 1808. result was 29. notified nurse, charge nurse, and doctor. glucose rechecked @1851. result was 129. notified nurse.
[2018-09-01 19:26] LABS: HEMATOCRIT 29.1 % (38.2-49.6); HEMOGLOBIN 9.8 g/dL (14.0-18.0); LYMPHOCYTES # (AUTO) 0.3 (1.0-3.2); LYMPHOCYTES % 6.4 % (18.0-39.1); MEAN CORPUSCULAR HEMOGLOBIN 25.7 pg (28-32); MEAN CORPUSCULAR HGB CONC 33.7 g/dL (31-35); MEAN CORPUSCULAR VOLUME 76.4 fL (81-99); MONOCYTES # (AUTO) 0.1 (0.2-0.8); MONOCYTES % 1.5 % (4.4-11.3); NEUTROPHILS # (AUTO) 3.5 (2.1-6.9); NEUTROPHILS % 90.6 % (38.7-80.0); PLATELET COUNT 226 x10e3/uL (140-360); RED BLOOD COUNT 3.81 x10e6/uL (4.3-5.7); RED CELL DISTRIBUTION WIDTH 25.3 % (11.7-14.4)
[2018-09-01 19:37] LABS: INR 2.24; PROTHROMBIN TIME 25.5 seconds (11.9-14.5)
[2018-09-01 19:38] LABS: PARTIAL THROMBOPLASTIN TIME 40.4 seconds (23.8-35.5)
[2018-09-01 20:01] LABS: ALANINE AMINOTRANSFERASE 368 IU/L (0-55); ALBUMIN 1.9 g/dL (3.5-5.0); ALBUMIN/GLOBULIN RATIO 0.6 (0.8-2.0); ALKALINE PHOSPHATASE 1781 IU/L (40-150); ANION GAP 19.4 mmol/L (8-16); BUN/CREATININE RATIO 171 (6-25); CALCIUM 7.3 mg/dL (8.4-10.2); CARBON DIOXIDE 18 mmol/L (22-29); CHLORIDE 103 mmol/L (98-107); CREATINE KINASE 321 IU/L (30-200); CREATININE, SERUM 0.76 mg/dL (0.72-1.25); EST GLOMERULAR FILTRATION RATE > 60 ML/MIN (60-); GLUCOSE 149 mg/dL (74-118); POTASSIUM 5.4 mmol/L (3.5-5.1); SODIUM 135 mmol/L (136-145)
[2018-09-01] MEDS ORDERED: SODIUM CHLORIDE 0.9% 1000ML 1,000 ML IV ONE (20:15)
--- NOTE | 2018-09-01 20:23 | NUR ---
glucose 58; d50 pushed
[2018-09-01] MEDS ORDERED: DEXTROSE 50% SYRINGE 50 ML IV STA (20:24)
[2018-09-01 20:28] LABS: BLOOD UREA NITROGEN 130 mg/dL (7-26)
[2018-09-01] MEDS ORDERED: DEXTROSE 10% 1,000 ML IV ONE (20:30)
--- NOTE | 2018-09-01 20:51 | NUR ---
DR. DIEGO IN ROOM WITH PT/CINTHIA TO UPDATE THEM ON POC/PENDING ADMIT
[2018-09-01 21:17] LABS: AMYLASE 103 U/L (25-125); LIPASE 68 U/L (8-78)
--- OUTSIDE RECORDS SUMMARY | 2018-09-01 21:38 | XMS REPORT | Clinical Summary ---
Author Author [facility] Address Unknown Phone Unavailable Care Team Providers Care Verification Specialist Name Role Phone Oscar Rush MD PCP [...] of colon 02/18/2018 Hospital Gastroenterology Encounter Nguyen Orodnez MD 02/16/2018 Lab Lab Florinda Leigh MA [...] Taken Vital Sign Reading 05/25/2018 10:35 AM DESIGN/ANIMATION INSTRUCTOR Blood Pressure 162/79 05/25/2018 10:35 AM DESIGN/ANIMATION INSTRUCTOR Pulse 76 05/25/2018 10:35 AM DESIGN/ANIMATION INSTRUCTOR Temperature 37.1 C (98.8 F) 05/25/2018 10:35 AM DESIGN/ANIMATION INSTRUCTOR Respiratory Rate 16 05/25/2018 10:35 AM DESIGN/ANIMATION INSTRUCTOR Oxygen Saturation 100% - Inhaled Oxygen - Concentration 01/20/2018 4:08 PM CDT Weight 53.5 kg (118 lb) 05/25/2018 8:54 AM DESIGN/ANIMATION INSTRUCTOR Height 162.6 cm (5' 4") 01/20/2018 4:08 [...] Lot Implanted Type Area Manufactur er 10/27/2019 [id number] / / [id number] Stent Clnc Wallflex Otw [id number] Surgical N/A: N/A [facility] [place] [place] 30mm - [id number] Stents ENDOSCOPY Implanted: 02/18/2018 (Quantity not on file) Procedures Comments Procedure Name Priority Date/Time Associated Diagnosis COLONOSCOPY 05/25/2018 Mass of colon 10:00 AM DESIGN/ANIMATION INSTRUCTOR FL < 1 HOUR Routine 02/18/2018 Obstruction [...] Performing Organization Address City/State/Zipcode Phone Number [facility] [address] [place] [address] * Surgical pathology request (01/14/2018 11:27 AM CDT) Only the most recent of 5 results within the time period is included. [facility] DEPARTMENT OF PATHOLOGY AND GENOMIC MEDICINE Surgical pathology report See link below for PDF Lab [facility] DEPARTMENT OF Report PATHOLOGY AND GENOMIC MEDICINE Result status This is Supplemental Report [facility] DEPARTMENT OF for [id number] PATHOLOGY AND GENOMIC MEDICINE Performing Organization Address City/State/Zipcode Phone Number [facility] DEPARTMENT OF [address] [place] [address] PATHOLOGY AND GENOMIC MEDICINE * CBC with platelet and differential (01/04/2018 12:00 AM CDT) WBC 15.1 (H) 3.8 - 10.8 Thousand/uL [facility] [place] RBC 3.90 (L) 4.20 - 5.80 Million/uL [facility] [place] HGB 9.6 (L) 13.2 - 17.1 g/dL [facility] [place] HCT 31.0 (L) 38.5 - 50.0 % [facility] [place] MCV 79.5 (L) 80.0 - 100.0 fL [facility] [place] MCH 24.6 (L) 27.0 - 33.0 pg [facility] [place] MCHC 31.0 (L) 32.0 - 36.0 g/dL [facility] [place] RDW 14.4 11.0 - 15.0 % [facility] [place] Platelet count 610 (H) 140 - 400 Thousand/uL [facility] [place] MPV 11.5 7.5 - 12.5 fL [facility] [place] Neutrophils, absolute 10,993 (H) 1,500 - 7,800 cells/uL [facility] [place] Lymphocytes, absolute 1,797 850 - 3,900 cells/uL [facility] [place] Monocytes, absolute 1,555 (H) 200 - 950 cells/uL [facility] [place] Eosinophils, absolute 634 (H) 15 - 500 cells/uL [facility] [place] Basophils, absolute 121 0 - 200 cells/uL [facility] [place] Neutrophils 72.8 % [facility] [place] Lymphocytes 11.9 % [facility] [place] Monocytes 10.3 % [facility] [place] Eosinophils 4.2 % [facility] [place] Basophils + RC 0.8 % [facility] [place] Comment Comment: [facility] WE RECEIVED YOUR HANDWRITTEN [place] TEST ORDER AND PERFORMED A CBC (INCLUDES HEMOGRAM, PLATELET AND DIFFERENTIAL). IF THIS IS NOT WHAT YOU INTENDED TO ORDER, PLEASE CONTACT YOUR LOCAL CORPORATE HEALTH CONSULTANT IMMEDIATELY SO THAT WE CAN ADJUST OUR BILLING APPROPRIATELY. YOU MAY ALSO INQUIRE ABOUT ALTERNATIVE OR ADDITIONAL TESTING. Narrative Performed At FASTING: UNKNOWN [facility]ST Resulting Agency Comment Performing Organization Information: Site ID: RGA Name: [facility] Lab Address: [address] [place] [phone] Director: Ivone Sow Performing Organization Address City/[facility] Cent[facility]ode Phone Number [facility] [place] [address] [place] [phone] * Hepatic function panel (01/04/2018 12:00 AM CDT) Protein 6.4 6.1 - 8.1 g/dL [facility] [place] Albumin, S 3.9 3.6 - 5.1 g/dL [facility] [place] Globulin, total 2.5 1.9 - 3.7 g/dL (calc) [facility] [place] Albumin/globulin ratio 1.6 1.0 - 2.5 (calc) [facility] [place] Total bilirubin 0.3 0.2 - 1.2 mg/dL [facility] [place] Bilirubin direct 0.1 < OR=0.2 mg/dL [facility] [place] Bilirubin, indirect 0.2 0.2 - 1.2 mg/dL (calc) [facility] [place] Alkaline phosphatase 280 (H) 40 - 115 U/L [facility] [place] AST 33 10 - 35 U/L [facility] [place] ALT 31 9 - 46 U/L [facility] [place] Comment Comment: [facility] We received your handwritten [place] test order and performed the AMA defined Hepatic Function Panel. If this is not what you intended to order, please contact your local client retention specialist immediately so that we may adjust our billing appropriately. You may also inquire about alternative or additional testing. Narrative Performed At FASTING: UNKNOWN QUEST Resulting Agency Comment Performing Organization Information: Site ID: RGA Name: [facility] Lab Address: [address] [place] [phone] Director: Ivone Sow Performing Organization Address City/[facility] Cent[facility]ode Phone Number [facility] [place] [address] [place] [phone] after 08/31/2017 Insurance Payer Benefit Subscriber ID Type Phone Address Plan / Group COMMERCIAL MISC MISC xxxxxxxx Commercial [employer] BCBS BCBS xxxxxxxxxxxx PPO CHOICE PPO/FEDERA L EMPL PPO MEDICARE MEDICARE xxxxxxxxxxx Medicare [place], [place] PART A [place] ([place]) [place] [address] Advance Directives Patient has advance care planning documents on file. For more information, lana singleton contact: Enoc Calderón [address] [place] [address]
--- NOTE | 2018-09-01 22:10 | NUR ---
Report received from [facility]. Patient received very weak/thin and small with alert/oriented x3. denied pain and no SOB. Respiration even and unlabored. V/S WNL. Spo2 maintained 1005 with RA. Family at the bed side, head to tor assessment completed. Stage IV wound noted on his right buttock. Bed in lower position,locked. Call miranda within reach. Will continue to monitor.
[2018-09-01 22:27] LABS: CLARITY,URINE HAZY (CLEAR); COLOR,URINE YELLOW (YELLOW); KETONES,URINE NEGATIVE (NEGATIVE); LEUKOCYTE ESTERASE ,URINE NEGATIVE (NEGATIVE); NITRITE,URINE NEGATIVE (NEGATIVE); PROTEIN,URINE DIPSTICK TRACE (NEGATIVE)
[2018-09-01 22:28] LABS: BILIRUBIN,URINE 1+ (NEGATIVE); URINE UROBILINOGEN 0.2 mg/dL (0.2 - 1)
[2018-09-01 22:30] LABS: BACTERIA,URINE FEW /HPF; EPITHELIAL CELLS,URINE FEW /LPF; RBC,URINE 21-50 /HPF (0-5); WBC,URINE (MAN) 0-5 /HPF (0-5)
[2018-09-01 23:27] VITALS: BP 136/94
--- NOTE | 2018-09-01 23:27 | NUR ---
Temperature 95.0 at this time. Assisted to put John hugger to the patient at this time. Will continue to monitor.
[2018-09-01 23:35] VITALS: BP 136/94
--- NOTE | 2018-09-01 23:45 | NUR ---
Patient connected to 2liters oxygen via nasal canula at this time.
--- NOTE | 2018-09-02 00:05 | Diagnostic Imaging Report ---
EXAM: CT Abdomen and Pelvis WITHOUT contrast INDICATION: Elevated LFTs. Stage IV colon cancer. COMPARISON: 07/22/2018. TECHNIQUE: Abdomen and pelvis were scanned utilizing a multidetector helical scanner from the lung base to the pubic symphysis without administration of IV contrast. Absence of intravenous contrast decreases sensitivity for detection of focal lesions and vascular pathology. Coronal and sagittal reformations were obtained. Routine protocol was performed. IV CONTRAST: None. ORAL CONTRAST: None. RADIATION DOSE: Total DLP: 219.92 mGy*cm Estimated effective dose: (DLP x 0.015 x size factor) mSv COMPLICATIONS: None FINDINGS: Evaluation limited due to the lack of contrast, the possibility of abdominal fat. LINES and TUBES: None. LOWER THORAX: Bilateral small pleural effusions and bibasilar compressive atelectasis. Coronary artery calcifications. HEPATOBILIARY: The liver is enlarged and appears completely replaced by multiple large masses not well evaluated due to the lack of contrast. No significant biliary dilatation noted. GALLBLADDER: No radio-opaque stones or sludge. No wall thickening. SPLEEN: No splenomegaly. PANCREAS: No focal masses or ductal dilatation. ADRENALS: No adrenal nodules KIDNEYS/URETERS: No hydronephrosis. No cystic or solid mass lesions. No stones. GI TRACT: Limited resolution due to lack of contrast. No abnormal distention to suggest obstruction. Appendix is not clearly visualized. Large volume of stool throughout colon and rectum. PELVIC ORGANS/BLADDER: Unremarkable. LYMPH NODES: No lymphadenopathy. VESSELS: There is severe atherosclerotic disease in the aorta and major arterial branches. PERITONEUM / RETROPERITONEUM: No free air or fluid. BONES: There are degenerative changes in the thoracic spine. SOFT TISSUES: Unremarkable. IMPRESSION: 1. Enlarged liver nearly completely replaced by multiple metastasis. 2. Small volume ascites. 3. Small bilateral pleural effusions associated with bibasilar compressive atelectasis. Signed by: Dr. Kade Carrillo M.D. on 09/02/2018 12:02 AM
[2018-09-02 00:31] VITALS: BP 136/94
--- NOTE | 2018-09-02 00:32 | NUR ---
Inserted condom catheter at this time,patient tolerated well. Will continue to monitor.
[2018-09-02] MEDS ORDERED: MORPHINE SULFATE 2 MG/ML SYR 1ML IV PRN (02:30)
[2018-09-02] MEDS ORDERED: ASPIRIN 81 MG CHEW TAB PO ONE (02:45)
[2018-09-02] MEDS: ONDANSETRON HCL INJ 2MG/ML 2ML 2 MG/ML VIAL IV PRN ×4 (02:46→19:38)
[2018-09-02] MEDS: MORPHINE SULFATE INJ 4 MG/ML INJ 1ML IV PRN ×4 (02:46→19:38)
[2018-09-02 03:04] LABS: CREATINE KINASE MB 0.5 ng/mL (0-5.0)
[2018-09-02 05:45] LABS: HEMATOCRIT 28.6 % (38.2-49.6); HEMOGLOBIN 9.5 g/dL (14.0-18.0); LYMPHOCYTES # (AUTO) 0.2 (1.0-3.2); LYMPHOCYTES % 7.4 % (18.0-39.1); MEAN CORPUSCULAR HEMOGLOBIN 25.5 pg (28-32); MEAN CORPUSCULAR HGB CONC 33.2 g/dL (31-35); MEAN CORPUSCULAR VOLUME 76.7 fL (81-99); MONOCYTES % 1.4 % (4.4-11.3); NEUTROPHILS # (AUTO) 2.6 (2.1-6.9); NEUTROPHILS % 90.1 % (38.7-80.0); PLATELET COUNT 170 x10e3/uL (140-360); RED BLOOD COUNT 3.73 x10e6/uL (4.3-5.7); RED CELL DISTRIBUTION WIDTH 24.9 % (11.7-14.4)
[2018-09-02 06:17] LABS: ALANINE AMINOTRANSFERASE 343 IU/L (0-55); ALBUMIN 1.8 g/dL (3.5-5.0); ALBUMIN/GLOBULIN RATIO 0.6 (0.8-2.0); ALKALINE PHOSPHATASE 1577 IU/L (40-150); ANION GAP 18.8 mmol/L (8-16); BLOOD UREA NITROGEN 117 mg/dL (7-26); BUN/CREATININE RATIO 158 (6-25); CARBON DIOXIDE 17 mmol/L (22-29); CHLORIDE 108 mmol/L (98-107); CREATININE, SERUM 0.74 mg/dL (0.72-1.25); EST GLOMERULAR FILTRATION RATE > 60 ML/MIN (60-); GLUCOSE 120 mg/dL (74-118); POTASSIUM 4.8 mmol/L (3.5-5.1); SODIUM 139 mmol/L (136-145)
[2018-09-02 06:21] LABS: CALCIUM 6.9 mg/dL (8.4-10.2)
[2018-09-02 07:11] LABS: BAND NEUTROPHILS % (MANUAL) 2 %; BLAST CELLS % MANUAL 1; LYMPHOCYTES % (MANUAL) 6 % (19-48); MONOCYTES % (MANUAL) 1 % (3.4-9.0); NEUTROPHILS % (MANUAL) 88 % (40-74)
[2018-09-02 07:12] LABS: ANISOCYTOSIS SLIGHT; HYPOCHROMASIA SLIGHT; PLATELET ESTIMATE ADEQUATE; PLATELET MORPHOLOGY COMMENT NORMAL; RBC MORPHOLOGY COMMENT NORMAL
--- NOTE | 2018-09-02 07:13 | NUR ---
Report given to oncoming nurse,walking round done.
--- NOTE | 2018-09-02 07:23 | NUR ---
PT COMPLAINS OF GENERALIZED PAIN 10/10 MEDICATED ACCORDING TO MAR. PT DENIES THIS RN BEING ABLE TO ASSESS BOTTOM WOUND STATES ITS OKAY AT THIS TIME. THIS RN ASKED IF CODE STATUS HAD BEEN DISCUSSED, PT STATES HE IS NOT READY TO DISCUSS AT THIS TIME
[2018-09-02] MEDS: DEXTROSE 10% 1,000 ML IV SCH ×2 (09:25→18:45)
--- NOTE | 2018-09-02 11:26 | NUR ---
SPOKE WITH FAMILY THEY HAVE USED [facility] IN THE PAST AND WOULD LIKE FOR PT TO USE THEIR SERVICES. FAXING CLINICALS TO MAGDALENA KUMAR AT [facility] [phone] PHONE IS [phone]
[2018-09-02 12:00] VITALS: BP 102/64
[2018-09-02 12:22] VITALS: BP 102/64
--- NOTE | 2018-09-02 12:41 | NUR ---
EDUCATED ABOUT IMM, SIGNED, FILED IN CHART, WITH COPY LEFT WITH FAMILY AT BEDSIDE.
--- NOTE | 2018-09-02 15:22 | NUR ---
Nutrition Intervention Note RD Recommendation(s) for Physician: -Continue regular diet as ordered; family was not interested in swallow eval -Rec Ensure Enlive TID to promote protein-calorie intake -Rec Megace to increase appetite if medically appropriate -Rec MVi w/ minerals, vitamin C, and zinc sulfate for wound healing Plan of Care: RD following, monitoring for tolerance and adequacy, ONS rec Nutrition reason for involvement: Nutrition Risk Trigger, diagnosis RD Assessment 09/02 63yo M, who was admitted for failure to thrive. Chart reviewed. Pt was discussed during AM rounds. Pending hospice status. Wound care was consulted for stage IV pressure ulcer. Last chemo was completed 2 weeks ago. Visited pt in the room. Per family, pt has had gradual weight loss since dx with cancer in 2017. His weight has fluctuated between 106 123lb within the last year. Pt has had worsening appetite and PO intake in the last 2 weeks. Pt didnt eat anything for breakfast and lunch today. At home, pt usually eats a pureed diet and drinks 2-3 protein shakes daily. Pt has had swallowing issue for a while but never seen a [employer]. Family was not interested in swallow eval. RD rec to continue ONS and downgrade diet texture to pureed for better tolerance. Family on bedside to encourage PO. Please monitor for risk of aspiration. Will continue to monitor and follow. Principal Problems/Diagnoses: failure to thrive, hypoglycemia, malnutrition, anorexia PMH: stage IV colon cancer, liver failure, HTN, hypothyroidism GI: abdomen non-tender, round, flatus present Skin: stage IV PU per RN notes Labs: BUN 117 H, Glucose 70 145, AST 641 H, ALT 343 L, Alk phos 1577 H Meds: morphine, zofran, dextrose Ht: 64in Wt: 113.06 BMI: 19.4kg/m2 IBW: 130lb Malnutrition Evaluation (09/02) The patient meets criteria for unspecified SEVERE protein-calorie malnutrition. Energy intake: <75% of estimated energy requirements for >3 months Weight loss: >10% in 6 months (Chronic) Fat loss: Severe hollow around orbital region, protrusion of clavicle, loss of fat over triceps Muscle loss: Severe protrusion of acromion process, apparent ribs, temporal depression Supporting Evidence: Fluid accumulation: unable to evaluate Functional Status: measurably reduced Nutrition Prescription (Diet Order): regular diet Estimated Nutritional Needs: Calories: 1275 1785kcal (25-35kcal/kg/d) Weight used: current BW Protein: 51 77g (1-1.5g/kg/d) Weight used: current BW Diet Adequacy: Not meeting calorie needs, Not meeting protein needs Diet Education Needs Assessment: Diet education not indicated. Nutrition Care Level: mod Nutrition Diagnosis: Inadequate oral intake related to stage IV colon cancer as evidenced by weight loss, poor appetite and decreased meal intake. Goal: Patient will meet 75-100% of estimated needs by follow up Progress: N/A Interventions: Texture-modified diet, Commercial beverage Monitoring/Evaluation: Total energy intake, Total protein intake, Modified diet, Liquid supplement, Weight change Signed: Lisa Bush MS, RD, LD
--- NOTE | 2018-09-02 15:32 | NUR ---
WOUND CARE CONSULTATION - INITIAL EVALUATION Patient admitted from home to ER for increased weakness, decrease in appetite last 5 days, stage IV colon cancer with metastasis. DX: Anemia, Coagulopathy, Colon Cancer with Metastasis. LABS: WBC2.84 HGB9.5 HCT28.6 NEUT%90.1 Hospice discharge planning in progress. WC Consulted for Sacral ulcer evaluation. Patient Visit: - Patient in bed sleeping with family at bedside. Family states he just got pain medication. - Cachetic generalized appearance. Arousable, Unable to turn. Very Weak. Max assist to turn. Attempts to reach and assist. - Presents with sacral ulcer, dry tissue necrotic at base of wound. Unable to determine depth. Wound measuring 1x1x < 0.1cm with 100% tissue necrosis. IMPRESSION: Sacral Wound- Unstageable Pressure Ulcer Present On Admission. RECOMMENDATION: 1. Sacral Area - Unstageable Pressure Ulcer Present On Admission. - Cleanse wound with normal saline and 4x4 gauze. - Apply 50/50 mix of Venelex Ointment and Lidocaine Topical Gel 2/% and Cover with Allevyn Foam Sacrum Dressing Daily. 2. Continue Alternating Pressure Air Mattress 3. Turn and Reposition every 2 Hours 4. Bilateral Heel Protectors while in bed/ Offload heels with pillows while in bed. 5. Strict Pup Protocol. Thank you for consulting with Wound Care. Addendum: 09/02/18 at 1546 by Jacob Christie RN PATIENT VISIT: CONTINUED: Bartolome Score 11 Strict PUP Alternating Pressure Air Mattress. Bilateral Heel protectors in place. Addendum: 09/02/18 at 1547 by Jacob Christie RN Amended: Links added.
[2018-09-02 16:00] VITALS: BP 87/61
--- NOTE | 2018-09-02 16:41 | NUR ---
FAMILY DOCTOR IN ROOM SPOKE TO PATIENT WHO STATES HE WOULD LIKE TO GO HOME ON HOSPICE AT THIS TIME. THIS RN, PARTNER AND SISTER IN ROOM. NOTIFIED
--- NOTE | 2018-09-02 19:21 | NUR ---
Received change of shift report from AM nurse. Rounds completed.
--- NOTE | 2018-09-02 20:30 | NUR ---
Patient d/c via ambulance to hospice care via stretcher.
[2018-09-03] MEDS ORDERED: LIDOCAINE HCL 2% JELLY 5 ML TUBE TOP SCH (09:00)
[2018-09-03] MEDS ORDERED: BALSAM PERU/CASTOR OIL 60 GM OINT...G. TP SCH (09:00)
--- NOTE | 2018-09-05 05:53 | Discharge Summary ---
DISCHARGE DIAGNOSES: 1. Stage IV colon cancer. 2. Liver failure. 3. Severe protein malnutrition. 4. Coagulopathy. HISTORY OF PRESENT ILLNESS AND HOSPITAL COURSE: See hospital chart for full details. The patient is a gentleman, who has a history of stage IV colon cancer, mostly to the liver, who was brought in and has significantly deteriorated since last time where he has had severe anorexia, more weight loss, where he has had severe protein malnutrition, now evidence of severe liver failure, evidenced by coagulopathy and LFTs. On CT scan, his liver is completely encased by multiple tumors, I had a long discussion with the patient and his partner as well as sister that obviously he has had severe deterioration in his overall health and that he is terminal and that we did discuss possibility about hospice, which the patient had a discussion with his family. They did elect for hospice and wanted to go home today at the time of discharge to home hospice, which was arranged for the patient and he was sent home on hospice. Please see hospital chart for full details. MD MARY Cordova/OLIVERIO /[id number]
== END 2018-09-02 20:30 | disposition hospice, home (50) | DRG 374 ==
LOC: ER 16:31 → ERHOLD 21:35 → IMCU 22:37
PROVIDERS: ADMIT Internal Medicine; ATTEND Internal Medicine
DX: C18.9 Malignant neoplasm of colon, unspecified (principal); E43 Unspecified severe protein-calorie malnutrition; Z68.1 Body mass index [BMI] 19.9 or less, adult; C78.7 Secondary malignant neoplasm of liver and intrahepatic bile duct; D68.4 Acquired coagulation factor deficiency; R62.7 Adult failure to thrive; E86.0 Dehydration; K74.60 Unspecified cirrhosis of liver; D64.9 Anemia, unspecified; Z66 Do not resuscitate
CPT/HCPCS: 36415; 71045; 74176; 80053; 81001; 82150; 82550; 82553; 82948; 83690; 84484; 85025; 85610; 85730; 93005; 99284; J2001; J2270; J2405; J7030; J7799